=== PATIENT | female | born 1940 | race African-American/Black ===

== ENCOUNTER 2016-11-22 05:22 | Inpatient (IN) | payer OTHER ==
[2016-11-22 07:03] LABS: MANUAL DIFF NEEDED? NO
--- NOTE | 2016-11-22 07:07 | PROVIDER DOCUMENTATION ---
HPI-Abdominal Pain/GI Problem - General Chief Complaint: Rectal Bleeding Stated Complaint: RECTUM BLEEDING Time Seen by Provider: 11/22/16 06:30 Source: patient, family Unable to obtain history due to:: urgency Allergies/Adverse Reactions: Patient Allergies Allergy/AdvReac Type Severity Reaction Status Date / Time meloxicam [From Mobic] AdvReac MAKES ME Verified 11/22/16 05:54 VIOLENT Home Medications: Home Medication List Medication Instructions Recorded Confirmed Last Taken Type Ascorbate Calcium [Vitamin C] 500 mg PO DAILY 07/09/16 11/22/16 11/21/16 History Cetirizine HCl [Zyrtec] 10 mg PO DAILY 07/09/16 11/22/16 11/21/16 History Cyanocobalamin (Vitamin B-12) 1 tab PO DAILY 07/09/16 11/22/16 11/21/16 History [Vitamin B12] Esomeprazole Magnesium [Nexium] 20 mg PO DAILY 07/09/16 11/22/16 11/21/16 History Glyburide/Metformin HCl 1.5 tab PO QHS 07/09/16 11/22/16 11/21/16 History [Glyburide-Metformin 2.5-500 mg] Glyburide/Metformin HCl 2 tab PO QAM 07/09/16 11/22/16 11/21/16 History [Glyburide-Metformin 2.5-500 mg] Hydrochlorothiazide 1 tab PO DAILY 07/09/16 11/22/16 11/21/16 History Losartan [Cozaar] 100 mg PO DAILY 07/09/16 11/22/16 11/21/16 History Metoprolol Succinate E.r. [Toprol 50 mg PO DAILY 07/09/16 11/22/16 11/21/16 History Xl] Multivitamin [Multivitamins] 1 each PO DAILY 07/09/16 11/22/16 11/21/16 History Propafenone HCl 150 mg PO TID 11/22/16 11/22/16 11/21/16 History Rivaroxaban [Xarelto] 20 mg PO DAILY 11/22/16 11/22/16 11/21/16 History - History of Present Illness-ABD Nature of Presenting Problems: 76 Year old AAF with a history of Diverticulosis, presents with c/c o rectal bleeding since last night. She was recently diagnosed with atrial fibrillation and started on Xarelto. She describes the blood as copious, and dark. She denies any tenesmus, or abdominal pain. She is comfortable, and denies any complaints at this time. She has a history of DM,AFIB, HTN, and UTI. Pain Radiation: reports: no radiation Quality of Pain: reports: none Severity in ED: reports: mild Onset/Duration: reports: last night Timing: reports: still present, improving Activities at Onset: reports: light activity Exposure to sick contacts?: No Modifying Factors: improves with: other medication (Patient recently started on xarelto for afib) Associated Symptoms: reports: denies symptoms Last BM: last night Dark Stools Present?: reports: maroon Rectal Bleeding: reports: blood mixed with stool Rectal Pain: reports: none Emesis Description: reports: none Bruising or Bleeding Gums?: No Similar Symptoms Previously?: Yes Recently seen or treated by another doctor?: Yes Review of Systems - Adult - REVIEW OF SYSTEMS - ADULT Constitutional: reports: no symptoms reported Eyes: reports: no symptoms reported Ears, Nose, Mouth & Throat: reports: no symptoms reported Cardiovascular: reports: no symptoms reported Respiratory: reports: no symptoms reported Gastrointestinal: reports: see HPI, rectal bleeding. denies: constipation, nausea, vomiting Genitourinary: reports: no symptoms reported Musculoskeletal: reports: no symptoms reported Integumentary: reports: no symptoms reported Neurological: reports: no symptoms reported Psychiatric: reports: no symptoms reported Endocrine: reports: no symptoms reported Hematologic/Lymphatic: reports: no symptoms reported Allergic/Immunologic: reports: no symptoms reported All Other Systems: Reviewed and Negative Past History - Adult - PAST MEDICAL HISTORY-ADULT Review of Records: reports: Old Records Reviewed, Nursing Assessment Review, Medications Reviewed Major Childhood Illnesses: reports: denies history Cardiovascular: reports: HTN, hyperlipidemia Respiratory: reports: denies history Gastrointestinal: reports: diverticulosis, GERD, GI bleed, hemorrhoids Obstetrical/Gynecological: reports: denies history Genitourinary: reports: denies history Musculoskeletal: reports: denies history Neurological: reports: denies history Endocrine/Immune: reports: Diabetes Other Conditions: reports: denies history - PRIOR SURGERIES/PROCEDURES Surgical/Procedure History: reports: EGD, colonoscopy, bowel surgery - IMMUNIZATION STATUS Childhood Immunizations: See Nurse Assessment Flu Vaccine: See Nurse Assessment - FAMILY HISTORY Family History: reviewed, not pertinent Physical Exam-General - CONSTITUTIONAL General Appearance: appears well, alert, no apparent distress - EYES Eyes: PERRL/EOMI, pink conjunctivae, fundi clear, no AV nicking Departure - Departure Time of Disposition Order: 08:28 DIAGNOSIS: Bleeding diverticulosis, GI (gastrointestinal bleed) Disposition: ADMITTED INPATIENT 09 Certified Medical Emergency: Emergent Condition: Stable Referrals: Abel Elmore MD [Primary Care Provider] -
[2016-11-22 07:13] LABS: BASO% 0.6 % (0.0-0.8); EOS% 1.8 % (0.0-10.0); HEMATOCRIT 31.7 % (37.0-47.0); HEMOGLOBIN 10.4 g/dL (12.0-16.0); LYMPH% 14.7 % (20.5-51.1); MCH 30.6 PG (27-31); MCHC 32.8 g/dL (33-37); MCV 93.2 FL (81-99); MONO# 0.33 X1000 (0.11-0.59); MONO% 6.1 % (1.7-9.3); MPV 12.8 FL (7.4-10.4); NEUT% 76.8 % (42.2-75.2); PLT 143 X1000 (130-400)
[2016-11-22 07:17] LABS: INR 0.95; PROTIME 10.1 Seconds (9.2-11.7); PTT 20.9 Seconds (22.0-36.0)
[2016-11-22 07:31] LABS: ALBUMIN 3.9 g/dL (3.5-5.0); CALCIUM 10.4 mg/dL (8.8-10.2); POTASSIUM 4.2 mmol/L (3.5-5.1); TOTAL BILIRUBIN 0.23 mg/dL (0.20-1.00); TOTAL PROTEIN 6.3 g/dL (6.3-8.3)
[2016-11-22] MEDS ORDERED: SODIUM CHLORIDE 0.9% INJ ONE (08:27)
[2016-11-22] MEDS ORDERED: PROTONIX IV ONE (08:27)
[2016-11-22] MEDS ORDERED: ZOFRAN IV PRN (08:53)
[2016-11-22] MEDS ORDERED: PROTONIX 80 MG in NS 80 ML IV ONE (08:59)
[2016-11-22] MEDS ORDERED: PROTONIX 80 MG in NS 80 ML IV SCH ×2 (09:00→18:30)
[2016-11-22] MEDS: NS 1,000 ML IV SCH ×2 (10:00→20:33)
[2016-11-22 10:03] LABS: HEMATOCRIT 29.7 % (37.0-47.0); HEMOGLOBIN 9.7 g/dL (12.0-16.0)
--- NOTE | 2016-11-22 10:16 | ED EKG INTERP ---
EKG Interpretation - EKG Time of EKG reading by physician:: 09:38 EKG Read and Signed by:: Omid Urbano EKG Interpretation (*Must complete 3 of following elements*): Abnormal Rate: 67 (T wave abnormality, consider lateral ischemia) Rhythm: NSR with sinus arrhythmia Attestation - Scribe Verification/Attestation Scribe:: Ilda Morrow Acting as Scribe for:: Omid Urbano Scribe documention review:: This chart was documented by a scribe and accurately reflects the service the provider performed and the decisions made by the provider.
[2016-11-22 14:14] LABS: ALLEN TEST YES; BLOOD TYPE ARTERIAL; DRAW SITE R RADIAL; METHB 2.1 % (0.0-1.5); O2(CT) 13.1 mL/dL (15.0-23.0); PCO2(98.6) 44 mmHg (35-45); PO2(98.6) 115 mmHg (60-100); SAMPLE BLOOD; SAO2 98.3 % (95.0-100.0); THB 9.6 g/dL (11.5-17.4); pH(98.6) 7.37 (7.35-7.45)
[2016-11-22 14:16] LABS: MODALITY CANNULA
[2016-11-22 14:34] LABS: HEMATOCRIT 28.4 % (37.0-47.0); HEMOGLOBIN 9.3 g/dL (12.0-16.0)
[2016-11-22] MEDS: DUONEB (A & A) INH SCH ×3 (14:35→23:27)
--- NOTE | 2016-11-22 14:57 | HISTORY AND PHYSICAL ---
PRIMARY CARE PHYSICIAN: Abel Elmore MD GARAGE HAND: Yogesh Ernst MD CONSULTING PHYSICIAN: Esperanza Zhao MD CHIEF COMPLAINT: Black stools. HISTORY OF PRESENT ILLNESS: This is a morbidly obese 76-year-old female with a prior history of diverticulosis with prior diverticular bleed, hypertension, gastroesophageal reflux disease, diabetes type 2, and atrial fibrillation. She presented to the emergency room after having a dark black stool this morning about 4:30. Shortly after arriving at the emergency room she states she had a maroon-colored stool. She denies any pain, any symptoms of diverticulitis. She states that she has had diverticular bleeds in the past, although she it was in the setting of acute diverticulitis. Her first episode of atrial fibrillation in the 28 of October and at that time she was seen and hospitalized at [facility]. She spontaneously converted to sinus rhythm. She was placed on Xarelto. She has been on it approximately 2-1/2 weeks. She denies any bruising, any hematuria, or gums bleeding. She was noted to have a hemoglobin and hematocrit of 10.4 and 31.7. In review of her past records, she had a hemoglobin and hematocrit on 11/11/2011 12.3 and 38.1, with platelets 276, today they are 143. She does have an INR 0.95. She is being admitted for further evaluation and treatment. PAST MEDICAL HISTORY: Diverticulosis, diverticulitis, prior diverticular bleed in the setting of acute diverticulitis, hypertension, allergic rhinitis, gastroesophageal reflux disease, diabetes type 2, and atrial fibrillation. PAST SURGICAL HISTORY: Tubal ligation, bowel surgery, sclerotherapy, and back surgery. SOCIAL HISTORY: She denies tobacco use or illicit drug use. She does have occasional recreational alcohol. ALLERGIES: Meloxicam which makes her violent. HOME MEDICATIONS: Xarelto 20 mg daily, Toprol-XL 50 daily, Cozaar 100 daily, hydrochlorothiazide 1 tablet daily, glyburide/metformin 2.5/500, two tabs every morning, 1-1/2 tablets at night, Nexium 20 mg daily, vitamin B12 1 tab daily, Zyrtec 10 mg daily, vitamin C 500 mg daily. REVIEW OF SYSTEMS: A 14 point review of systems is discussed with patient with pertinent positives being bloody stools and black stools. She denied abdominal pain, any diarrhea, constipation, nausea, vomiting, any chest pain, palpitations, syncope, dizziness , shortness of breath, paroxysmal nocturnal dyspnea, orthopnea, cough, fever, chills, recent weight loss or weight gain, hematuria, dysuria, frequency, or urgency. PHYSICAL EXAMINATION: GENERAL: This is a morbidly obese, 76-year-old female who is lying in the bed in no distress. VITAL SIGNS: Blood pressure is 163/47, heart rate of 77, respirations are 18, temperature is 97.4 degrees oral, with room air saturation 100%. HEENT: Head is normocephalic, atraumatic. Pupils equal, round, react to light. EOMs are intact. Sclerae anicteric. Mucous membranes are moist. NECK: Supple. Trachea midline. CARDIOVASCULAR: Regular rate and rhythm S1, S2 appreciated. No rubs, murmurs, or gallops appreciated. LUNGS: Breath sounds are clear bilaterally. Chest rises and falls symmetrically with respiration. No increased work of breathing noted. GASTROINTESTINAL: Abdomen is soft, nontender, nondistended with bowel sounds in all 4 quadrants. BACK: No costovertebral angle tenderness. No spine tenderness. MUSCULOSKELETAL: Good range of motion of joints. NEUROLOGIC: She is alert and oriented x3. EXTREMITIES: No clubbing, cyanosis, or edema. Calves are nontender. Pulses are palpable x4. LABS: WBC is 5.43, with hemoglobin 10.4, hematocrit 31.7, and platelets of 143, 000. Sodium is 143, potassium 4.2, BUN 31, creatinine 1.2, with a glucose of 90. INR 0.95. Her EKG reveals sinus rhythm. ASSESSMENT: 1. Gastrointestinal bleed. The patient did have black stool this morning, followed by a maroon stool in the emergency room. She has had no further stools. Hemoglobin and hematocrit are 10 and 31, with platelets of 143,000, today. On the they were 12.3, 38.1, with platelets of 276,000. She has been typed and screened. We will get every 4 hour hemoglobin and hematocrit. Will consult GI and start the patient on a protonix drip. 2. Acute kidney injury. Creatinine today is 1.2. It was 0.9 on the . We will hold any renal toxic medications. Gently hydrate and trend labs. 3. Diverticulosis. Aware. 4. History of diverticular bleed in the setting of acute diverticulitis. 5. Atrial fibrillation. Will discontinue the xarelto. Will need to confer with cardiology about anticoagulation in this patient once the GI bleed has resolved. 6. Hypertension. At present we will hold all of her antihypertensives and we will monitor. 7. Gastroesophageal reflux disease. As stated above she will be on a Protonix drip. 8. Diabetes type 2. We will hold any antidiabetic medication. She will be placed on pattern blood glucose with sliding scale insulin. 9. Deep venous thrombosis prophylaxis will use SCDs. Of note, the patient does see Dr. Gandara in Cardiology. She underwent an echocardiogram in June of 2016 which revealed an ejection fraction of 60%. She has had a myocardial perfusion study looks like about 2013. At that time, she had a normal perfusion with a nondiagnostic stress. She states she did have some chest pain during that time. She has not had any since 2014 episode. Further treatments pending hospital course. Dictated by MINISTERIO Garzon for Esperanza Zhao MD The patient was seen and examined by me. I agree with the assessment and plan as dictated. MARCO
--- NOTE | 2016-11-22 15:12 | Diag Imaging Result Document ---
PROCEDURE NAME: CHEST-PORTABLE - 11/22/2016 AP PORTABLE CHEST AT 1430 HOURS: FINDINGS: There is cardiomegaly. There is no evidence of focal pulmonary opacity. The lower lung hernandez are somewhat attenuated by the overlying soft tissues. IMPRESSION: Cardiomegaly.
[2016-11-22] MEDS: HUMALOG SUBQ SCH ×3 (17:40→20:38)
[2016-11-22 18:24] LABS: HEMATOCRIT 28.4 % (37.0-47.0); HEMOGLOBIN 9.3 g/dL (12.0-16.0)
[2016-11-22 21:53] LABS: MANUAL DIFF NEEDED? NO
[2016-11-22 21:58] LABS: BASO% 0.4 % (0.0-0.8); EOS# 0.08 X1000 (0.0-0.7); EOS% 1.7 % (0.0-10.0); HEMATOCRIT 28.1 % (37.0-47.0); HEMOGLOBIN 9.2 g/dL (12.0-16.0); LYMPH# 1.11 X1000 (1.2-3.4); LYMPH% 23.6 % (20.5-51.1); MCH 30.8 PG (27-31); MCHC 32.7 g/dL (33-37); MONO# 0.38 X1000 (0.11-0.59); MONO% 8.1 % (1.7-9.3); MPV 11.2 FL (7.4-10.4); NEUT% 66.2 % (42.2-75.2); PLT 163 X1000 (130-400); RBC 2.99 XMIL (4.2-5.4)
--- NOTE | 2016-11-22 23:04 | CONSULTATION ---
DATE OF CONSULTATION: 11/22/2016 REQUESTING PHYSICIANS: Esperanza Zhao MD PRIMARY LOCKSTITCH HEMMER: Yogesh Ernst MD PRIMARY CARE PHYSICIAN: Abel Elmore MD REASON FOR CONSULTATION: Rectal bleeding. HISTORY OF PRESENT ILLNESS: Ms. Faulkner is a 76-year-old female, who was admitted on 11/22/2016 with a new onset of rectal bleeding. According to the patient, when she woke up this morning she went to use the restroom, she noted some dark stool mixed with fresh blood. She has a previous history of diverticulitis, diverticulosis and had last colonoscopy done July [address] Ernst. She was recently diagnosed with atrial fibrillation and was started on Xarelto in early October 2016. Her hemoglobin and hematocrit were noted to be 10.4 and 31.7, which had dropped in comparison to her last hemoglobin and hematocrit of 12.3, 38.1 on 11/11/2016. Since being in the hospital, she denies any vomiting blood or passing blood in the stools. Her Xarelto has been held. The patient has a remote history of peptic ulcer disease many years ago. She denies using any NSAIDs. PAST MEDICAL HISTORY: 1. Diverticulosis. 2. Diverticulitis. 3. History of prior diverticular bleeding. 4. Hypertension. 5. Allergic rhinitis. 6. Gastroesophageal reflux disease. 7. Diabetes type 2. 8. Atrial fibrillation on Xarelto, started on 11/16/2016 which has been held on admission. Last Xarelto was 11/21/2016. PAST SURGICAL HISTORY: Tubal ligation. Bowel surgery. Sclerotherapy. Back surgery. SOCIAL HISTORY: Denies any tobacco, alcohol, illicit drugs. She does drink occasionally. ALLERGIES: Meloxicam. MEDICATIONS AT HOME: Xarelto. Toprol. Cozaar. Hydrochlorothiazide. Glimepiride/metformin. Nexium 20 mg once daily. Vitamin B12. Zyrtec. Vitamin C. REVIEW OF SYSTEMS: Denies any fevers, rigors, or chills, chest pain, shortness of breath, dyspnea, denies any genitourinary complaints. Denies any history of vomiting blood or abdominal pain. She does have history of occasional constipation. MEDICATIONS IN THE HOSPITAL: Zofran, Humalog, Protonix drip, normal saline 100 mL/hour, DuoNeb. She is on a clear liquid diet. PHYSICAL EXAMINATION: Vital signs: Temperature 98.5 degrees, pulse of 85, respiratory rate 20, blood pressure 130/91, saturating 93% on room air. Weight: Body weight of 241 pounds. BMI of 37.7 kg. General: Mildly obese, lying in bed, in no acute distress. HEENT: Pale conjunctivae, no icterus, pupils equal, react to light. Neck: Supple. Chest: Decreased. Cardiac: Regular rate and rhythm. No murmur. Abdomen: Soft, nontender, nondistended. Bowel sounds heard. No rebound. No guarding. Mild obesity noted. Extremities: No clubbing, cyanosis or edema. Neurologic: Alert, awake, oriented. LABORATORY: Hemoglobin and hematocrit is 9.3, 28.4, which has dropped from 10.4 and 31.7 on admission. White count of 5.4, platelet count of 143,000, MCV of 93.2. Sodium of 142, potassium 4.2, chloride 107, bicarb 23, anion gap 13, BUN of 31, creatinine 1.2, glucose of 90, calcium is 10.4, AST 26, ALT 11, alkaline phosphatase 66, total protein 6.2, albumin of 3.9. INR 0.95. Hemoglobin and hematocrit on 11/11 was 38.1. The last colonoscopy was done 01/04/[address] Ernst. At that time, there was evidence of active diverticular bleeding in the splenic flexure area and this was treated with epinephrine and hemoclip. IMPRESSION AND PLAN: 1. Diverticular bleeding. 2. History of previous diverticulitis. 3. History of peptic ulcer disease. 4. Reflux disease. 5. Atrial fibrillation on Xarelto. 6. Anemia. RECOMMENDATIONS: We will give the patient a clear liquid diet. We will type and cross, transfuse to keep her hematocrit more than 25%. We will keep her on Protonix drip for now. We will watch her hematocrit and if she continues to drop, then she may need a colonoscopy. Since she had a recent colonoscopy less than a year ago, we will wait for Dr. Ernst to come tomorrow to decide if she needs another colonoscopy, but in the interim, if she shows signs of ongoing continuous gastrointestinal bleeding, then we may have to pursue endoscopic intervention. The patient is also a little hesitant in preceding colonoscopy and drinking a large 1 gallon of bowel prep. So we will let Dr. Ernst decide when he comes back tomorrow. The above plan of care was discussed with the patient and the nurse and all questions answered.
[2016-11-23] MEDS: DUONEB (A & A) INH SCH ×6 (03:16→22:58)
[2016-11-23] MEDS: NS 1,000 ML IV SCH ×3 (05:40→15:22)
[2016-11-23] MEDS: PROTONIX 80 MG in NS 80 ML IV SCH ×2 (05:41→16:57)
[2016-11-23] MEDS ORDERED: PROTONIX 80 MG in NS 80 ML IV SCH (06:00)
[2016-11-23] MEDS: HUMALOG SUBQ SCH ×5 (06:32→20:12)
[2016-11-23 06:39] LABS: MANUAL DIFF NEEDED? NO
[2016-11-23 06:42] LABS: BASO% 0.4 % (0.0-0.8); EOS# 0.04 X1000 (0.0-0.7); EOS% 0.8 % (0.0-10.0); HEMATOCRIT 28.9 % (37.0-47.0); HEMOGLOBIN 9.3 g/dL (12.0-16.0); LYMPH# 0.91 X1000 (1.2-3.4); LYMPH% 18.9 % (20.5-51.1); MCH 30.7 PG (27-31); MCHC 32.2 g/dL (33-37); MCV 95.4 FL (81-99); MONO# 0.35 X1000 (0.11-0.59); MONO% 7.3 % (1.7-9.3); MPV 12.3 FL (7.4-10.4); NEUT% 72.6 % (42.2-75.2); PLT 154 X1000 (130-400); RBC 3.03 XMIL (4.2-5.4)
[2016-11-23 07:15] LABS: AGAP 10; ALBUMIN 3.4 g/dL (3.5-5.0); BUN 15 mg/dL (8-22); CALCIUM 9.9 mg/dL (8.8-10.2); CHLORIDE 112 mmol/L (98-107); COSMO 295; POTASSIUM 4.2 mmol/L (3.5-5.1); SODIUM 147 mmol/L (136-145); TCO2 25 mmol/L (25-35)
--- NOTE | 2016-11-23 07:35 | EKG Report ---
Test Performed on : 11/22/2016 09:38:43 AM Test Reason : AFib Blood Pressure : / mmHG Vent. Rate : 067 BPM Atrial Rate : 067 BPM P-R Int : 156 ms QRS Dur : 092 ms QT Int : 410 ms P-R-T Axes : 057 029 -03 degrees QTc Int : 433 ms Normal sinus rhythm. with sinus arrhythmia. T wave abnormality, consider lateral ischemia Abnormal ECG When compared with ECG of 20-FEB-2012 19:01, No significant change was found Unconfirmed Result
[2016-11-23 10:56] LABS: MANUAL DIFF NEEDED? NO
[2016-11-23 11:01] LABS: BASO% 0.4 % (0.0-0.8); EOS# 0.05 X1000 (0.0-0.7); HEMATOCRIT 27.5 % (37.0-47.0); HEMOGLOBIN 8.6 g/dL (12.0-16.0); LYMPH# 1.11 X1000 (1.2-3.4); LYMPH% 21.6 % (20.5-51.1); MCH 30.2 PG (27-31); MCHC 31.3 g/dL (33-37); MCV 96.5 FL (81-99); MONO# 0.38 X1000 (0.11-0.59); MONO% 7.4 % (1.7-9.3); MPV 12.1 FL (7.4-10.4); NEUT% 69.6 % (42.2-75.2); PLT 153 X1000 (130-400); RBC 2.85 XMIL (4.2-5.4)
--- NOTE | 2016-11-23 12:11 | PROGRESS NOTE ---
DATE: 11/23/2016 SUBJECTIVE: Patient has no focal complaints. OBJECTIVE: Vital signs: Blood pressure 132/59, heart rate is 74, respiratory rate 28, temperature 98 to 100% on 3 L. Cardiovascular: Regular rate and rhythm. Pulmonary: Bilateral breath sounds. Clear to auscultation. GI: Soft, nontender, nondistended. Bowel sounds are positive. LABORATORY DATA: Hemoglobin and hematocrit are 9 and 28 and has basically been stable since yesterday morning. Chemistries: Sodium is at 147 but otherwise really unremarkable. PROBLEM LIST: 1. Gastrointestinal bleed, possibly lower, associated with direct thrombin inhibitor, Xarelto. Xarelto has been held. Plan for colonoscopy likely tomorrow after prep. She is on a PPI infusion. We will continue to follow closely. Continue hydration. At this point she has not required transfusion and her hemoglobin and hematocrit are stable so we will continue to monitor very closely. 2. Atrial fibrillation. Appears to be controlled. I am going to resume her Toprol and propafenone because she needs her medications to hopefully keep her heart rate under control. 3. Diabetes. Appears to be controlled. Holding her metformin just because her p.o. status is poor and we will continue sliding scale and follow. I will check an A1c too because that has not been done. 4. Disposition. I think she is stable for step down, maybe even med tele. The rest of the course is pending her GI workup.
--- NOTE | 2016-11-23 13:10 | PROGRESS NOTE ---
DATE: 11/23/2016 SUBJECTIVE: The patient denies any rectal bleeding since yesterday. She has had episodes of abdominal pain and cramping. No reported shortness of breath or chest pain. No reported dizziness. She does report a headache. OBJECTIVE: Vital Signs: Temperature 98.2 degrees, pulse 74, respirations 28, blood pressure 132/59. General: Patient is awake and alert. No acute distress. Respiratory: Lung sounds clear bilaterally. Abdomen: Soft, nontender. Positive bowel sounds. Cardiovascular: Sinus rhythm. She has a history of atrial fibrillation and was placed on Xarelto by Dr. Gandara in early October. She noted onset of rectal bleeding early yesterday morning associated with some abdominal cramping. LABORATORY: Hematology count 5.15, hemoglobin 8.6, hematocrit 27.5, MCV 96.5. Chemistry: Sodium 147, potassium 4.2, chloride 112, CO2 25, BUN 15, creatinine 0.8, glucose 137. ASSESSMENT: 1. Rectal bleeding with history of diverticular bleed in the past. 2. Anticoagulation therapy. Recently started on Xarelto in early October for atrial fibrillation. 3. Atrial fibrillation. 4. Anemia secondary to rectal bleeding. PLAN: Continue supportive care. Continue IV fluids. Monitor hemoglobin and hematocrit. Transfuse packed red blood cells if needed. Monitor for active bleeding. We will plan to proceed with a colonoscopy on Wednesday, once she has been off of Xarelto for at least 3 days, unless needed urgently. I have discussed the plan with the patient. We will give her a low volume prep, Prepopik since she is afraid she will have trouble drinking the gallon prep. Will plan further colonoscopy Wednesday unless needed urgently. I have discussed the procedure along with benefits and risk of the colonoscopy procedure. The patient wishes to proceed. I have discussed this case with Dr. Ernst. Dictated by MINISTERIO Pascual for Yogesh Ernst MD
[2016-11-23] MEDS: RYTHMOL PO SCH ×2 (13:32→16:58)
[2016-11-23] MEDS: TYLENOL PO PRN ×2 (15:22→23:12)
[2016-11-23 18:10] LABS: HEMATOCRIT 26.7 % (37.0-47.0); HEMOGLOBIN 8.3 g/dL (12.0-16.0)
[2016-11-24] MEDS: DUONEB (A & A) INH SCH ×6 (03:31→23:33)
[2016-11-24] MEDS: PROTONIX 80 MG in NS 80 ML IV SCH ×2 (05:07→13:13)
[2016-11-24] MEDS: NS 1,000 ML IV SCH ×3 (05:07→22:20)
[2016-11-24 07:46] LABS: AGAP 8; ALBUMIN 3.3 g/dL (3.5-5.0); BUN 10 mg/dL (8-22); CHLORIDE 110 mmol/L (98-107); COSMO 287; POTASSIUM 4.3 mmol/L (3.5-5.1); SODIUM 144 mmol/L (136-145); TCO2 26 mmol/L (25-35)
[2016-11-24 07:59] LABS: HEMATOCRIT 27.9 % (37.0-47.0); HEMOGLOBIN 8.7 g/dL (12.0-16.0); MCH 30.3 PG (27-31); MCHC 31.2 g/dL (33-37); MCV 97.2 FL (81-99); MPV 12.5 FL (7.4-10.4); RBC 2.87 XMIL (4.2-5.4)
[2016-11-24] MEDS: ZYRTEC PO SCH (08:48)
[2016-11-24] MEDS: TOPROL XL PO SCH (08:48)
[2016-11-24] MEDS: COZAAR PO SCH (08:48)
[2016-11-24] MEDS: VITAMIN B-12 PO SCH (08:48)
[2016-11-24] MEDS: RYTHMOL PO SCH ×3 (08:49→17:46)
[2016-11-24 09:34] LABS: HEMOGLOBIN A1C 5.2 % (4.8-6.0)
--- NOTE | 2016-11-24 11:27 | PROGRESS NOTE ---
DATE: 11/24/2016 SUBJECTIVE: The patient denies any active bleeding. She has not had a bowel movement today. She does report some mild abdominal cramping. OBJECTIVE: Vital Signs: Temperature 97.8 degrees, pulse 75, respirations 16, blood pressure 143/54. General: Generally, patient is awake and alert, in no acute distress. HEENT: Normocephalic, atraumatic. Pupils equal, round, reactive to light. Sclerae nonicteric. Respiratory: Lung sounds clear bilaterally. Abdomen: Soft. Positive bowel sounds. Some mild tenderness with palpation. LABORATORY RESULTS: Hematology: White count 4.16, hemoglobin 8.7, hematocrit 27.9, MCV 97.2, platelet 144. Chemistry: Sodium 144, potassium 4.3, chloride 110, CO2 26, BUN 10, creatinine 0.8, glucose 119. ASSESSMENT: 1. Rectal bleeding. 2. History of diverticular bleed in the past. 3. Anticoagulation therapy. She was recently started on Xarelto in October for atrial fibrillation. Her Xarelto is currently on hold. 4. Atrial fibrillation. 5. Anemia secondary to gastrointestinal bleed. PLAN: Continue supportive care. Continue IV fluids. Monitor hemoglobin and hematocrit and transfuse packed red blood cells if needed. We will plan to proceed with a colonoscopy on Wednesday once she has been off of Xarelto for at least 3 days unless needed urgently. I have discussed the plan with the patient along with benefits and risk of the procedure, and she wishes to proceed. Further plans will be made according to findings. I have discussed this case with Dr. Ernst. Dictated by MINISTERIO Pascual for Yogesh Ernst MD
[2016-11-24] MEDS: HUMALOG SUBQ SCH ×3 (11:42→22:25)
[2016-11-24] MEDS ORDERED: MISC. PHARMACY COMMUNICATION SCH (16:00)
[2016-11-24] MEDS ORDERED: NON-FORMULARY BULK MED PO SCH (16:00)
--- NOTE | 2016-11-24 16:35 | PROGRESS NOTE ---
DATE: 11/24/2016 SUBJECTIVE: The patient denies having any bleeding. Has not had a bowel movement for the past 24 hours. She denies having any abdominal discomfort. No fever. No chills. Following the patient with lower GI bleed. OBJECTIVE: Vital Signs: Blood pressure 135/56, pulse of 58, respirations 25, temperature 98.0 degrees, saturation 100% on room air. General Appearance: Morbidly obese, black female in no acute distress. HEENT: Anicteric. Clear conjunctivae. Neck: Supple. No JVD. No bruits. Cardiovascular: S1, S2. Normal rate and rhythm. No murmur, rubs, or gallops. Pulmonary: Clear to auscultation bilaterally. GI: Soft, nontender, nondistended. Normoactive bowel sounds. Musculoskeletal: No clubbing, cyanosis, or edema. LABORATORY: White count 4.16, hemoglobin 8.7, hematocrit of 27.9, platelets 144,000. Chemistry: Sodium 144, potassium 4.3, chloride 110, bicarb 26, BUN 10, creatinine 0.8, glucose of 119. ASSESSMENT AND PLAN: This is a 76-year-old with a history of atrial fibrillation, on Xarelto, presented to the emergency room for recurrent lower gastrointestinal bleed. 1. Lower gastrointestinal bleed. GI was consulted. They are planning to do the colonoscopy on Wednesday, pending her Xarelto to clear out of her system. The patient has not required any transfusion at this point. Her hemoglobin and hematocrit have remained stable. 2. Atrial fibrillation. Under control with Toprol and on propafenone. Will continue her Xarelto. 3. Diabetes. Will hold her metformin. Start the patient on sliding scale insulin. 4. Seasonal allergic rhinitis. We will continue Zyrtec. 5. Hypertension. Continue Cozaar. 6. Code status. The patient is a full code.
[2016-11-25] MEDS: PROTONIX 80 MG in NS 80 ML IV SCH ×3 (01:26→09:56)
[2016-11-25] MEDS: NS 1,000 ML IV SCH ×2 (05:19→12:07)
[2016-11-25] MEDS: DUONEB (A & A) INH SCH ×6 (05:39→23:20)
[2016-11-25] MEDS: HUMALOG SUBQ SCH ×4 (06:29→21:28)
[2016-11-25 07:32] LABS: MANUAL DIFF NEEDED? NO
[2016-11-25 07:33] LABS: BASO% 0.4 % (0.0-0.8); EOS# 0.09 X1000 (0.0-0.7); EOS% 1.9 % (0.0-10.0); HEMATOCRIT 28.6 % (37.0-47.0); HEMOGLOBIN 9.1 g/dL (12.0-16.0); LYMPH% 16.5 % (20.5-51.1); MCH 30.3 PG (27-31); MCHC 31.8 g/dL (33-37); MCV 95.3 FL (81-99); MONO# 0.52 X1000 (0.11-0.59); MONO% 10.7 % (1.7-9.3); MPV 12.2 FL (7.4-10.4); NEUT% 70.5 % (42.2-75.2); PLT 167 X1000 (130-400)
[2016-11-25 07:47] LABS: AGAP 9; BUN 8 mg/dL (8-22); CALCIUM 9.6 mg/dL (8.8-10.2); CHLORIDE 107 mmol/L (98-107); COSMO 280; POTASSIUM 4.1 mmol/L (3.5-5.1); SODIUM 141 mmol/L (136-145); TCO2 25 mmol/L (25-35)
[2016-11-25] MEDS ORDERED: SODIUM CHLORIDE 0.9% 10 ML ONE (07:57)
[2016-11-25] MEDS ORDERED: PROTONIX IV SCH ×2 (08:59→09:00)
[2016-11-25] MEDS: RYTHMOL PO SCH ×3 (09:41→16:35)
--- NOTE | 2016-11-25 12:11 | PROGRESS NOTE ---
DATE: 11/25/2016 SUBJECTIVE: The patient is feeling well today. She had her bowel prep yesterday and is scheduled for a colonoscopy at 2 o'clock today. OBJECTIVE: Vital Signs: Blood pressure 139/52, pulse of 68, respirations 14, temperature 98.1 degrees, satting 99%. General Appearance: Morbidly obese, black female, in no acute distress. HEENT: Anicteric sclerae. Clear conjunctivae. Neck: Supple. No JVD. No bruits. Cardiovascular: S1 and S2. Normal rate and rhythm. No murmur, rubs, or gallops. Pulmonary: Clear to auscultation bilaterally. GI: Soft, nontender, nondistended. Normoactive bowel sounds. Musculoskeletal: No clubbing, cyanosis or edema. LABORATORY: Her white count is 4.84, hemoglobin 9.1, hematocrit of 28.6, platelets of 167. Chemistry: Sodium 141, potassium 4.1, chloride 107, bicarbonate 25, BUN 8, creatinine 0.8, glucose 113. ASSESSMENT AND PLAN: This is a 76-year-old, black female admitted to the hospital for rectal bleed. 1. Rectal bleed. The patient is going for a colonoscopy today. We will continue to hold her Xarelto. We will resume her Xarelto once cleared by gastroenterology. 2. Atrial fibrillation. Continue rate control with metoprolol and will put her on propafenone for rate control. 3. Diabetes. Will continue sliding scale insulin. 4. Seasonal allergic rhinitis. Continue Zyrtec. 5. Hypertension. Continue Cozaar 6. Code status: The patient is a full code.
[2016-11-25] MEDS ORDERED: MYLICON DROPS (DOSE) MISC ONE (15:49)
[2016-11-25] MEDS ORDERED: DIPRIVAN 1% ONE (16:27)
[2016-11-25] MEDS ORDERED: FENTANYL ONE (16:27)
[2016-11-25] MEDS: TYLENOL PO PRN (16:31)
[2016-11-25] MEDS: ZYRTEC PO SCH (16:32)
[2016-11-25] MEDS: TOPROL XL PO SCH (16:32)
[2016-11-25] MEDS: COZAAR PO SCH (16:32)
[2016-11-25] MEDS: VITAMIN B-12 PO SCH (16:34)
[2016-11-25] MEDS ORDERED: XYLOCAINE-MPF 2% ONE (17:31)
--- NOTE | 2016-11-25 21:56 | OPERATIVE NOTE ---
PROCEDURE DATE: 11/25/2016 PROCEDURE: Colonoscopy. PREOPERATIVE DIAGNOSES: 1. Gastrointestinal bleed. 2. Anemia secondary to gastrointestinal bleed. POSTOPERATIVE DIAGNOSIS: 1. Diverticular bleeding. 2. Diverticulosis. Otherwise normal colon. HISTORY: This is a 76-year-old female who has history of recurrent diverticular bleeding admitted to hospital with acute lower GI bleed after she was started on Xarelto for atrial fibrillation. Her hemoglobin and hematocrit had dropped, But not significant requiring transfusion. Endoscopy was done for diagnostic as well as therapeutic purposes. DESCRIPTION OF PROCEDURE: Informed consent obtained from the patient. The procedure, risks, benefits, alternatives were explained in layman's terms. She understood. All the pertinent questions were answered. Patient was brought to the endoscopy unit and was premedicated as per Anesthesia. After adequate sedation, while she was lying in left lateral position, digital rectal exam was performed, which was normal. Scope was then gently introduced into the rectum and advanced under direct vision. Immediately, I saw some dark stool, but did not notice any bright red blood. Vigorous irrigation and suctioning was employed to cleanse the area as far as I could, and I was able to advance the scope all the way up to the cecum. The cecum was identified by ileocecal valve and appendiceal orifice. As we advanced the scope through the rectum all the way to the cecum, I saw the change in the stool where the stool became more of brown color. The right side of the colon did not have much of dark altered blood or the appearance was more brownish. Again I did not see any evidence of active bleeding. The scope was withdrawn, paying careful attention to details. Preparation was fair. There was a good bit of stool present throughout the colon, although vigorous irrigation and suctioning was employed, but I was only able to cleanse partially. The visualized portion of the colon revealed extensive diverticulosis involving majority of the left colon and some were also seen in the right colon. No evidence of diverticulitis or diverticular bleeding was seen. Rectum was examined both in straight and retroflexed view, which revealed no pathology. Scope was then removed. Patient tolerated the procedure well. No complications noted. Patient was then transferred to the recovery area in a stable condition. IMPRESSION: Diverticular bleeding, diverticulosis. I did not see any evidence of active bleeding that I could render any treatment to. RECOMMENDATION: I would start her on all her medications, stool softener, she is on MiraLAX and I was asked to discuss her condition with the e learning designer and Dr. Elomre to see if she can be resumed back on anticoagulation to the lowest dose possible so she can avoid recurrent bleeding. I have explained the finding and plan with the patient's daughter. She understood. All her pertinent questions were answered.
[2016-11-26] MEDS: DUONEB (A & A) INH SCH ×3 (03:25→11:03)
[2016-11-26] MEDS: HUMALOG SUBQ SCH ×2 (06:24→11:54)
[2016-11-26 07:00] LABS: MANUAL DIFF NEEDED? NO
[2016-11-26 07:19] LABS: BASO% 0.2 % (0.0-0.8); EOS# 0.05 X1000 (0.0-0.7); EOS% 0.9 % (0.0-10.0); HEMATOCRIT 27.7 % (37.0-47.0); HEMOGLOBIN 8.7 g/dL (12.0-16.0); LYMPH# 0.88 X1000 (1.2-3.4); LYMPH% 15.1 % (20.5-51.1); MCH 30.1 PG (27-31); MCHC 31.4 g/dL (33-37); MCV 95.8 FL (81-99); MONO# 0.66 X1000 (0.11-0.59); MONO% 11.3 % (1.7-9.3); MPV 12.3 FL (7.4-10.4); NEUT% 72.5 % (42.2-75.2); PLT 110 X1000 (130-400); RBC 2.89 XMIL (4.2-5.4)
[2016-11-26 07:23] LABS: AGAP 8; BUN 7 mg/dL (8-22); CHLORIDE 107 mmol/L (98-107); COSMO 280; SODIUM 141 mmol/L (136-145); TCO2 26 mmol/L (25-35)
[2016-11-26] MEDS: NS 1,000 ML IV SCH ×2 (08:04→08:05)
[2016-11-26] MEDS: TOPROL XL PO SCH (08:21)
[2016-11-26] MEDS: ZYRTEC PO SCH (08:21)
[2016-11-26] MEDS: VITAMIN B-12 PO SCH (08:21)
[2016-11-26] MEDS: COZAAR PO SCH (08:21)
[2016-11-26] MEDS: RYTHMOL PO SCH ×2 (08:21→14:07)
[2016-11-26] MEDS ORDERED: PRILOSEC PO SCH (09:00)
[2016-11-26 13:22] VITALS: BP 140/44
--- NOTE | 2016-11-26 16:20 | DISCHARGE SUMMARY ---
ADMISSION DATE: 11/22/2016 DISCHARGE DATE: 11/26/2016 DISCHARGE DIAGNOSES: 1. Diverticular bleed. 2. Atrial fibrillation. 3. Diabetes type 2. 4. Gastroesophageal reflux disease. 5. Hypertension. 6. Morbid obesity. DISCHARGE MEDICATIONS: 1. Propafenone 150 mg t.i.d. 2. Vitamin C 500 100 mg p.o. daily. 3. Zyrtec 10 mg p.o. daily. 4. Cozaar 100 mg p.o. daily. 5. B12 2500 mcg daily. 6. Nexium 20 mg p.o. daily. 7. Glipizide/metformin 2.5/500, 1-1/2 tabs at night and 2 tabs in the morning. 8. Hydrochlorothiazide 12.5, 1 tablet p.o. daily. 9. Multivitamin 1 tablet p.o. daily. 10. Toprol-XL 50 mg p.o. daily. 11. Aspirin 325, 1 tablet p.o. daily. CONSULTATIONS: GI was consulted for lower GI bleed. PROCEDURES: A colonoscopy was done and was found to have diverticular bleeding. Dr. Ernst did the procedure. He did not find any active bleeding, but there was evidence of diverticular bleeding and diverticulosis. SIGNIFICANT LABORATORY AND IMAGING: At discharge hemoglobin and hematocrit is 8.7 and 27.7, platelets of 110,000. Chemistry: Sodium 141, potassium 4.0, chloride 107, bicarbonate 26, BUN 7, creatinine 0.8, glucose 114. HOSPITAL COURSE: The patient is a 76-year-old, black female, morbidly obese, with a history of atrial fibrillation and was put on Xarelto presented to the emergency room with bright red blood per rectum. This is her 2nd episode of bleeding. The patient seen Dr. Ernst in the past and requested Dr. Ernst again. At this time, Dr. Ernst saw the patient. Because she was on Xarelto he had to keep her Xarelto on hold for 3 days before he was able to do the colonoscopy, when he did the colonoscopy, he did not find any active bleeding, but there was evidence of diverticular bleeding. From our standpoint with risks and benefits as this is her 2nd bleed, we will hold her on Xarelto at discharge and we will put her on a full dose of aspirin for anticoagulation for her atrial fibrillation although it is not as adequate as it would be with a new oral anticoagulation. However the risk of bleeding is much less. I encouraged the patient to discuss with her primary care doctor and her bad cloth checker perhaps to stay on a lower dose of Xarelto instead of a full dose of Xarelto. She will follow up with her PCP and her bad cloth checker in 1-2 weeks. PHYSICAL EXAMINATION: Vital Signs: At discharge, her vital signs are blood pressure 140/44, pulse of 71, respirations 20, temperature of 97.6 degrees saturations of 94% on room air. General appearance: Morbidly obese, black female in no acute distress. HEENT: Anicteric. Clear conjunctivae. Neck: Supple. No JVD. No bruit. Cardiovascular: S1, S2. Normal rate and rhythm. No murmur, rubs, or gallops. Pulmonary: Clear to auscultation bilaterally. Gastrointestinal: Soft, nontender, nondistended. Normoactive bowel sounds. Musculoskeletal: No clubbing, cyanosis, or edema. DISPOSITION: We will discharge the patient home. CONDITION: Stable and improving. ACTIVITY: As tolerated. FOLLOWUP: The patient can follow up with her bad cloth checker and her PCP in 1-2 weeks. TIME SPENT AT DISCHARGE: Thirty-five minutes.
== END 2016-11-26 14:55 | disposition home or self-care (01) | DRG 378 ==
LOC: ED 05:22 → EDIPHOLD 09:49 → ICU 16:05 → 3N 11-23 21:41
PROVIDERS: ATTEND Internal Medicine
PROC: 0DJD8ZZ Inspection of Lower Intestinal Tract, Via Natural or Artificial Opening Endoscopic (ICD-10-PCS; principal; 2016-11-25 15:35)
DX: K57.31 Diverticulosis of large intestine without perforation or abscess with bleeding (principal); N17.9 Acute kidney failure, unspecified; I48.91 Unspecified atrial fibrillation; E11.9 Type 2 diabetes mellitus without complications; E66.01 Morbid (severe) obesity due to excess calories; I10 Essential (primary) hypertension; D50.0 Iron deficiency anemia secondary to blood loss (chronic); E78.5 Hyperlipidemia, unspecified; K21.9 Gastro-esophageal reflux disease without esophagitis; Z79.02 Long term (current) use of antithrombotics/antiplatelets; Z79.84 Long term (current) use of oral hypoglycemic drugs; Z79.899 Other long term (current) drug therapy; J30.2 Other seasonal allergic rhinitis; Z87.891 Personal history of nicotine dependence; G47.33 Obstructive sleep apnea (adult) (pediatric); Z87.11 Personal history of peptic ulcer disease; Z86.718 Personal history of other venous thrombosis and embolism; Z86.711 Personal history of pulmonary embolism; Z68.37 Body mass index [BMI] 37.0-37.9, adult
CPT/HCPCS: 71010; 80048; 80053; 80069; 82306; 82805; 82948; 83036; 83880; 85014; 85018; 85025; 85027; 85610; 85730; 86850; 86900; 86901; 93005; 94640; 94761; 96365; 96366; 96375; C9113; J1815; J2405; J3010; J7030; S0164

== ENCOUNTER 2017-04-20 15:33 | Inpatient (IN) ==
[2017-04-20] MEDS ORDERED: NS 2,000 ML IV ONE (16:40)
[2017-04-20 16:46] LABS: URINE MICRO REVIEW NEEDED? NO; URINE SOURCE CLEAN CATCH
[2017-04-20 16:46] LABS: MANUAL DIFF NEEDED? NO
--- NOTE | 2017-04-20 16:52 | PROVIDER DOCUMENTATION ---
This chart was entered by Ilda Morrow Scribe, acting as scribe for Gilbert Henley MD. HPI-General Adult - General Chief Complaint: UTI Symptoms Stated Complaint: CONFUSED,POSS UTI Time Seen by Provider: 04/20/17 16:03 Source: patient Allergies/Adverse Reactions: Patient Allergies Allergy/AdvReac Type Severity Reaction Status Date / Time meloxicam [From Mobic] AdvReac MAKES ME Verified 04/20/17 16:12 VIOLENT Home Medications: Home Medication List Medication Instructions Recorded Confirmed Last Taken Type Cetirizine HCl [Zyrtec] 10 mg PO DAILY 07/09/16 04/20/17 04/14/17 History Losartan [Cozaar] 100 mg PO DAILY 07/09/16 04/20/17 04/14/17 History Propafenone HCl 150 mg PO TID 11/22/16 04/20/17 04/14/17 History Aspirin [Aspir-Low] 81 mg PO DAILY 03/23/17 04/20/17 04/14/17 History Omeprazole 40 mg PO DAILY 03/23/17 04/20/17 04/14/17 History Alprazolam 0.25 mg PO HS 04/20/17 04/20/17 Unknown History Pravastatin Sodium 20 mg PO HS 04/20/17 04/20/17 Unknown History - History of Present Illness -Gen Adult Nature of Presenting Problems: Pt is a 76 year old female who came to the ED with a cc of UTI symptoms and has been recently treated for one. Pt reports she was referred to ED for elevated parathyroid hormone and renal insufficiency. Onset/Duration: reports: unsure Timing: reports: still present Context/Activities at Onset: reports: none Modifying Factors: improves with: nothing Associated Symptoms: reports: denies symptoms Similar Symptoms Previously?: Yes Recently seen or treated by another doctor?: Yes Review of Systems - Adult - REVIEW OF SYSTEMS - ADULT Constitutional: denies: chills, fever Eyes: reports: no symptoms reported Ears, Nose, Mouth & Throat: reports: no symptoms reported Cardiovascular: reports: no symptoms reported Respiratory: denies: cough, shortness of breath Gastrointestinal: reports: no symptoms reported Genitourinary: reports: frequency, frequent UTI's, urinary retention, urgency. denies: flank pain, hematuria, incontinence Musculoskeletal: reports: no symptoms reported Integumentary: reports: no symptoms reported Neurological: reports: no symptoms reported Psychiatric: reports: no symptoms reported Endocrine: reports: no symptoms reported Hematologic/Lymphatic: reports: no symptoms reported Allergic/Immunologic: reports: no symptoms reported All Other Systems: Reviewed and Negative Past History - Adult - PAST MEDICAL HISTORY-ADULT Review of Records: reports: Old Records Reviewed, Nursing Assessment Review Major Childhood Illnesses: reports: denies history Cardiovascular: reports: A-Fib, HTN, hyperlipidemia Respiratory: reports: denies history Gastrointestinal: reports: diverticulosis, GERD, GI bleed, hemorrhoids Obstetrical/Gynecological: reports: denies history Genitourinary: reports: denies history Musculoskeletal: reports: denies history Neurological: reports: denies history Endocrine/Immune: reports: Diabetes Other Conditions: reports: denies history - PRIOR SURGERIES/PROCEDURES Surgical/Procedure History: reports: EGD, colonoscopy, BTL, bowel surgery - IMMUNIZATION STATUS Childhood Immunizations: See Nurse Assessment Flu Vaccine: See Nurse Assessment - FAMILY HISTORY Family History: reviewed, not pertinent Physical Exam-General - PHYSICAL EXAM-ADULT Initial Vital Signs Reviewed: Yes - CONSTITUTIONAL General Appearance: appears well, alert, no apparent distress - EYES Eyes: PERRL/EOMI, pink conjunctivae - HEAD, EARS, NOSE, MOUTH & THROAT HENMT: normocephalic/atraumatic, moist mucous membranes - NECK Neck: non-tender, full range of motion - RESPIRATORY Respiratory: chest non-tender, lungs clear, normal breath sounds - CARDIOVASCULAR Cardiovascular: normal peripheral pulses, regular rate, rhythm - GASTROINTESTINAL (ABDOMEN) Abdominal Exam: normal bowel sounds, non tender, soft - MUSCULOSKELETAL Back Exam: normal inspection, no CVA tenderness Extremity: normal range of motion, non-tender, normal gait - SKIN Integumentary: normal color, normal turgor - NEUROLOGIC Neurologic: grossly normal - PSYCHIATRIC Psych/Mental Status: normal mood/affect, normal thought content, normal thought process, oriented x 3 Progress - PLAN OF CARE/RESULTS Progress/Plan/Lab Results: Vital Signs - 8 hr 04/20/17 15:48 Temperature 98.4 F Pulse Rate 64 Respiratory Rate 16 Blood Pressure 142/54 O2 Sat by Pulse Oximetry 96 Orders Category Date Time Status CBC WITH ELECTRONIC DIFF [HEME] Stat Lab 04/20/17 16:11 Uncollected CMP [COMPREHENSIVE METABOLIC PANEL] [CHEM] Stat Lab 04/20/17 16:11 Uncollected PTH W CA AND PHOS [CHEM] Stat Lab 04/20/17 16:12 Uncollected UA NIMS W/REFLEX CULT [URINALYSIS] Stat Lab 04/20/17 16:04 Uncollected Result Diagrams: 04/20/17 16:35 - REASSESSMENT Reassessment #1 Time Reassessed: 17:05 Status: unchanged (dehydration, renal insufficiency, failed outpatient treatment for UTI, anemia) Departure - Departure Date of Disposition Decision: 04/20/17 Time of Disposition Decision: 17:07 DIAGNOSIS: Hypercalcemia, Renal insufficiency syndrome, Dehydration, Hyperparathyroidism, UTI symptoms Disposition: ADMITTED INPATIENT 09 Certified Medical Emergency: Emergent Condition: Stable Referrals and Follow-Ups: Abel Elmore MD [Primary Care Provider] - - Critical Care Note This patient required my direct & personal management of CC.: No This chart was documented by the indicated scribe, (Ilda Morrow Scribe) and accurately reflects the services I performed and decisions made by me, Gilbert Henley MD, as attested by the provider's signature.
[2017-04-20 16:53] LABS: BILIRUBIN URINE NEGATIVE (NEGATIVE); BLOOD URINE SMALL (NEGATIVE); COLOR YELLOW; GLUCOSE URINE NEGATIVE (NEGATIVE); LEUKOCYTES URINE LARGE (NEGATIVE); NITRITE URINE NEGATIVE (NEGATIVE); PROTEIN URINE 50 mg/dL (NEGATIVE); SP GRAVITY URINE 1.008; TURBIDITY URINE HAZY (CLEAR); UROBILINOGEN URINE NORMAL (NORMAL)
[2017-04-20 16:55] LABS: UR EPITHELIAL CELLS <10 /HPF (<10); URINE BACTERIA NEGATIVE /HPF; URINE CULTURE NEEDED? YES; URINE WBC TNTC /HPF (<10)
[2017-04-20 17:03] LABS: BASO% 0.6 % (0.0-0.8); EOS# 0.14 X1000 (0.0-0.7); EOS% 1.6 % (0.0-10.0); HEMOGLOBIN 8.9 g/dL (12.0-16.0); LYMPH# 0.81 X1000 (1.2-3.4); LYMPH% 9.4 % (20.5-51.1); MCH 27.6 PG (27-31); MCHC 30.7 g/dL (33-37); MCV 89.8 FL (81-99); MONO# 0.51 X1000 (0.11-0.59); MONO% 5.9 % (1.7-9.3); MPV 11.2 FL (7.4-10.4); NEUT% 82.5 % (42.2-75.2); PLT 374 X1000 (130-400); RBC 3.23 XMIL (4.2-5.4)
[2017-04-20 17:17] LABS: ALBUMIN 3.9 g/dL (3.5-5.0); CALCIUM 11.2 mg/dL (8.8-10.2); TOTAL BILIRUBIN 0.35 mg/dL (0.20-1.00); TOTAL PROTEIN 7.6 g/dL (6.3-8.3)
--- NOTE | 2017-04-20 17:42 | ED EKG INTERP ---
This chart was entered by Ilda Morrow Scribe, acting as scribe for Gilbert Henley MD. EKG Interpretation - EKG Time of EKG reading by physician:: 17:17 EKG Read and Signed by:: Gilbert Henley EKG Interpretation (*Must complete 3 of following elements*): Abnormal Rate: 60 (nonspecific t wave abnormality ) Rhythm: NSR This chart was documented by the indicated scribe, (Ilda Morrow Scribe) and accurately reflects the services I performed and decisions made by me, Gilbert Henley MD, as attested by the provider's signature.
[2017-04-20] MEDS ORDERED: ROCEPHIN 1 GM/NS 1 GM/50 ML IVPB IV ONE (18:01)
[2017-04-20] MEDS ORDERED: NS 1,000 ML IV SCH (18:27)
[2017-04-20] MEDS ORDERED: TYLENOL PO PRN (18:32)
[2017-04-20] MEDS: ROCEPHIN 1 GM/NS 1 GM/50 ML IVPB IV SCH (18:52)
--- NOTE | 2017-04-20 19:48 | HISTORY AND PHYSICAL ---
CHIEF COMPLAINT: Altered mental status. HISTORY OF PRESENT ILLNESS: A 76-year-old female with a past medical history of diverticulosis, prior diverticular bleed, hypertension, GERD, type 2 diabetes and atrial fibrillation. She presented to the emergency with a chief complaint of altered mental status. As per the daughter, this patient has been having UTI that started last week. She presented with the same symptoms to her primary doctor and he started this patient with antibiotics for 5 days which she ended last Wednesday. She basically recovered during the weekend and then on Wednesday she started having again some kind of mental status changes, she was not confused, but her answers were slow and she was not herself. So she went again to her primary care doctor who prescribed again medication, antibiotics, nitrofurantoin. She does not remember the name of the 1st antibiotic that she took before the nitrofurantoin. Today she presented to the emergency department, not only because she has the same symptoms, but because she was sent by her primary doctor secondary to hypercalcemia. In the emergency department they found out that this patient's calcium is elevated at 11.2, also the PTH is 123. Elevated BUN and creatinine which has been elevated seen last month. We have a previous study from 03/23/2017. Hemoglobin is 8.9, and it looks like this is around to her baseline. Seems the PTH and calcium are elevated. I will admit the patient for further workup, I will ask for urine calcium level in 24 hours, I will get some images of the parathyroid hormone with nuclear medicine, I will ask for phosphorus, TSH and vitamin D. Also I will get a renal ultrasound and a chest x-ray. In the emergency department, also they found out that this patient's urine has large leukocytes, but negative nitrates, but since this patient has been having multiple UTIs and she is still on treatment, I will put this patient on ceftriaxone. PHYSICAL EXAMINATION: VITAL SIGNS: Temperature 97.8 degrees, pulse 69, respiratory rate 20, blood pressure 152/43, oxygen saturation 96% on room air. HEENT: Head normocephalic. No trauma. PERRLA. NECK: Supple. No JVD. No masses. Central trachea. CHEST: Clear to auscultation. No wheezing. No rales. ABDOMEN: Soft, nontender, nondistended. No hepatosplenomegaly. EXTREMITIES: No edema. No clubbing. No cyanosis. NEUROLOGICAL: The patient is alert. She is oriented x3, but her answers are slow, but she is answering all the questions properly. She moves all 4 extremities. LABORATORY: WBC 8.6, hemoglobin 8.9, hematocrit 29, platelet 374,000. Sodium 137, potassium 4, chloride 101, bicarbonate 26, BUN 34, creatinine 2.2, glucose 146, calcium 11.2, albumin 3.9, total protein 7.6, PTH 123. PAST MEDICAL HISTORY: Diverticulosis with multiple diverticular bleed, also diverticulitis, hypertension, GERD, diabetes type 2 and atrial fibrillation. PAST SURGICAL HISTORY: Tubal ligation. Bowel surgery. Sclerotherapy. Back surgery. SOCIAL HISTORY: She denies tobacco, drugs and occasionally she drinks alcohol. ALLERGIES: Meloxicam. HOME MEDICATIONS: Pravastatin 20 mg p.o. at bedtime. Omeprazole 40 mg p.o. daily. Cetirizine 10 mg p.o. daily. Aspirin 81 mg p.o. daily. Propafenone 150 mg p.o. t.i.d. Losartan 100 mg p.o. t.i.d. Alprazolam 0.25 mg p.o. at bedtime. ASSESSMENT AND PLAN: 1. Altered mental status, this could be secondary to recurrent urinary tract infection and/or hypercalcemia, I will place this patient on antibiotics and I will work up this hypercalcemia. Her parathyroid hormone is high. This is likely secondary to primary hyperparathyroidism. 2. Hypercalcemia. Likely related with primary hyperparathyroidism. I will get a parathyroid nuclear study, also I will get a vitamin D, urine calcium and thyroid levels. I will hydrate this patient as well. 3. Acute kidney injury. This patient's kidney function last month was 1.6, but in November was completely normal. I am not quite sure how long she has been with this kidney problem. I will get an ultrasound of the kidneys. Likely this is related also to hypercalcemia. 4. Diverticulosis. Aware. 5. History of diverticular bleed and diverticulitis, since this patient has been having multiple gastrointestinal bleeds, I will stay away from anticoagulation at this moment. I will continue with her aspirin though. 6. Hypertension. I will hold her VADIM inhibitor and I will monitor the blood pressure. Since I am using normal saline, probably the blood pressure is going to go up. So I will start this patient on amlodipine low dose. 7. Gastroesophageal reflux disease. Continue with proton pump inhibitor. 8. Type 2 diabetes. I will put this patient on pattern blood sugar and sliding scale insulin. 9. Deep vein thrombosis prophylaxis. I will use SCDs and CONSTANTINO hose. Further treatment pending hospital course. cc: Buck Montoya MD
[2017-04-20] MEDS: HUMULIN R SUBQ SCH (22:55)
[2017-04-20] MEDS: NORVASC PO SCH (22:56)
[2017-04-20] MEDS: PRAVACHOL PO SCH (22:56)
--- NOTE | 2017-04-21 06:10 | Diag Imaging Result Doc PS360 ---
EXAM: CHEST-PORTABLE HISTORY: SOB TECHNIQUE: Portable AP COMPARISON: 11/22/2016 FINDINGS: The lungs are well expanded. The heart is enlarged. Mild central vascular prominence. No consolidation. No pleural effusions identified. IMPRESSION: Stable chest. Electronically signed by Cm Blanco 04/21/2017 6:08 AM
[2017-04-21 06:52] LABS: MANUAL DIFF NEEDED? NO
[2017-04-21] MEDS: HUMULIN R SUBQ SCH ×4 (07:04→23:01)
[2017-04-21 07:05] LABS: INR 1.04; PROTIME 10.9 Seconds (9.2-11.7); PTT 24.3 Seconds (22.0-36.0)
[2017-04-21 07:11] LABS: ALBUMIN 3.5 g/dL (3.5-5.0); BASO% 0.6 % (0.0-0.8); CALCIUM 10.4 mg/dL (8.8-10.2); EOS# 0.22 X1000 (0.0-0.7); EOS% 3.1 % (0.0-10.0); HEMATOCRIT 27.1 % (37.0-47.0); HEMOGLOBIN 8.3 g/dL (12.0-16.0); LYMPH# 0.77 X1000 (1.2-3.4); MCH 27.9 PG (27-31); MCHC 30.6 g/dL (33-37); MCV 90.9 FL (81-99); MONO# 0.39 X1000 (0.11-0.59); MONO% 5.6 % (1.7-9.3); MPV 11.3 FL (7.4-10.4); NEUT% 79.7 % (42.2-75.2); PLT 338 X1000 (130-400); POTASSIUM 4.1 mmol/L (3.5-5.1); RBC 2.98 XMIL (4.2-5.4); TOTAL BILIRUBIN 0.26 mg/dL (0.20-1.00); TOTAL PROTEIN 6.3 g/dL (6.3-8.3)
[2017-04-21 07:19] LABS: HEMOGLOBIN A1C 5.5 % (4.8-6.0)
[2017-04-21] MEDS: PRILOSEC PO SCH (14:43)
[2017-04-21] MEDS: NORVASC PO SCH ×2 (14:43→20:21)
[2017-04-21] MEDS: 1/2 NS 1,000 ML IV SCH (14:43)
[2017-04-21] MEDS: ASPIRIN EC PO SCH (14:43)
--- NOTE | 2017-04-21 15:12 | PROGRESS NOTE ---
DATE: 04/21/2017 SUBJECTIVE: This patient is stable. As per the daughter she has been a little bit confused but compared with yesterday she is about the same. She is answering all my questions properly but slow. She is in physical therapy and she is walking without any problems. OBJECTIVE: Vital Signs: Temperature 98.1 degrees, pulse 61, respiratory rate 18, blood pressure 153/82, oxygen saturation 96 on room air. HEENT: Head normocephalic. No trauma. PERRLA. Neck: Supple. No JVD. No masses. Central trachea. Chest: Clear to auscultation. No wheezing. No rales. Abdomen: Soft, protuberant, nontender, nondistended. No hepatosplenomegaly. Extremities: No edema. No clubbing. No cyanosis. Neurological: The patient is alert and oriented x3 but her answers are slow. She is answering all my questions properly. She moves all 4 extremities. LABORATORY: WBC 7, hemoglobin 8.3, hematocrit 27.1, platelets 333,000. Sodium 146, potassium 4.1, chloride 109, bicarbonate 24, BUN 31, creatinine. 2.3, glucose 134, calcium 10.4, albumin 3.5. ASSESSMENT AND PLAN: 1. Altered mental status. This could be secondary to recurrent urinary tract infection and/or hypercalcemia. This patient is on antibiotics and today she had a parathyroid nuclear medicine study. Her parathyroid hormone is high and probably this is likely secondary to primary hyperparathyroidism. 2. Hypercalcemia. Likely related to primary hyperparathyroidism. We had the parathyroid nuclear study today. We will continue with IV fluids. 3. Mild hypernatremia. Continue with the same management. 4. Acute kidney injury. Continue with IV fluids. 5. Diverticulosis. Aware. 6. History of diverticular bleed and diverticulitis. Aware. 7. Hypertension, stable. Continue with the same management. She is on amlodipine. I stopped the VADIM inhibitor because of the kidney injury. 8. Gastroesophageal reflux disease. Continue with PPIs. 9. Type 2 diabetes. Continue with the pattern of blood sugar and sliding scale insulin. 10. Deep vein thrombosis prophylaxis. Continue with SCDs and CONSTANTINO hose for now. cc: Buck Montoya MD
[2017-04-21] MEDS: ROCEPHIN 1 GM/NS 1 GM/50 ML IVPB IV SCH (18:34)
[2017-04-21] MEDS: PRAVACHOL PO SCH (20:21)
[2017-04-22] MEDS: 1/2 NS 1,000 ML IV SCH ×2 (05:35→14:53)
[2017-04-22 06:39] LABS: MANUAL DIFF NEEDED? NO
[2017-04-22 06:52] LABS: EOS# 0.23 X1000 (0.0-0.7); EOS% 4.4 % (0.0-10.0); HEMATOCRIT 28.5 % (37.0-47.0); HEMOGLOBIN 8.7 g/dL (12.0-16.0); LYMPH# 0.69 X1000 (1.2-3.4); LYMPH% 13.2 % (20.5-51.1); MCH 27.7 PG (27-31); MCHC 30.5 g/dL (33-37); MCV 90.8 FL (81-99); MONO# 0.45 X1000 (0.11-0.59); MONO% 8.6 % (1.7-9.3); MPV 11.1 FL (7.4-10.4); NEUT% 72.8 % (42.2-75.2); PLT 336 X1000 (130-400); RBC 3.14 XMIL (4.2-5.4)
[2017-04-22 07:00] LABS: CALCIUM 11.2 mg/dL (8.8-10.2)
--- NOTE | 2017-04-22 07:18 | Diag Imaging Result Doc PS360 ---
EXAM: US RENAL 2 (RETROPER) COMPLETE HISTORY: CKD TECHNIQUE: COMPARISON: 05/11/2016 FINDINGS: The right kidney measures 13.1 x 6.1 x 6.9 cm. Normal cortical thickness. Borderline mild increased renal echogenicity. Mildly dilated renal pelvis and calyces. There is a subcentimeter cyst superiorly. No solid mass. The left kidney measures 13.1 x 6.6 x 7.3 cm. There is mild to moderate distention to the renal pelvis and calyces. Normal cortical thickness. Borderline increased renal echogenicity. There is a small renal cyst. No solid mass. The urinary bladder is only mildly distended. IMPRESSION: Development of bilateral mild to moderate hydronephrosis. There is also borderline increased renal echotexture which can be seen with medical renal disease. Electronically signed by Cm Blanco 04/22/2017 7:16 AM
--- NOTE | 2017-04-22 07:19 | Diag Imaging Result Doc PS360 ---
EXAM: PARATHYROID W/SPECT HISTORY: high pth TECHNIQUE: 21.3 mCi sestamibi COMPARISON: 10/01/2010 FINDINGS: 20 minute and two hour postinjection imaging obtained. SPECT images taken. There is normal uptake in the parotid and submandibular glands. There is normal uptake within the thyroid. No other area of increased activity within the neck or upper chest. No focal area of asymmetry. IMPRESSION: No parathyroid identified. Electronically signed by Cm Blanco 04/22/2017 7:16 AM
[2017-04-22] MEDS: HUMULIN R SUBQ SCH ×4 (08:35→20:50)
[2017-04-22] MEDS ORDERED: LAMICTAL PO SCH (09:00)
[2017-04-22 09:11] LABS: HOURS 24 Hrs
[2017-04-22 09:28] LABS: UR CALCIUM < 0.6 mg/dL
[2017-04-22 09:32] LABS: MAGNESIUM 2.3 mg/dL (1.5-2.7)
[2017-04-22] MEDS: MIRALAX PO SCH ×2 (10:18→20:51)
[2017-04-22] MEDS: ASPIRIN EC PO SCH (10:19)
[2017-04-22] MEDS: NORVASC PO SCH ×2 (10:19→20:51)
[2017-04-22] MEDS: PRILOSEC PO SCH (10:19)
--- NOTE | 2017-04-22 10:22 | Diag Imaging Result Doc PS360 ---
SKELETAL SURVEY (ADULT) - 04/22/2017 INDICATION: R/O multiple myeloma TECHNIQUE: COMPARISON: None FINDINGS: 20 images of the axial and appendicular skeleton were obtained. There is advanced degeneration throughout the spine diffusely. There are fusion rods in the lower lumbar spine. There is mild osteoarthritis of both knees. In the left distal femur, there is a benign-appearing irregular sclerotic lesion. 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 No suspicious bony lesions. IMPRESSION: No suspicious bony lesions. Nonspecific findings as described above. Electronically signed by Kain Nichols 04/22/2017 10:20 AM
--- NOTE | 2017-04-22 15:15 | PROGRESS NOTE ---
DATE: 04/22/2017 SUBJECTIVE: This patient is stable, she is answering all my questions properly. She looks a little bit better compared with yesterday. Her answer is faster than yesterday. No family members at the bedside, but I called the daughter and we talked about her mom's situation today. OBJECTIVE: Vital Signs: Temperature 98.1 degrees, pulse 66, respiratory rate 18, blood pressure 166/54, oxygen saturation 98 on room air. HEENT: Head normocephalic. No trauma. PERRLA. Neck: Supple. No JVD. No masses. Central trachea. Chest: Clear to auscultation. No wheezing. No rales. Abdomen: Soft, nontender, nondistended. No hepatosplenomegaly. Neurological: The patient is alert and oriented x3. No focal neurological deficits. Her answers are slow, but she is answering all my questions properly, compared with yesterday, she looks a little bit better. LABORATORY: WBC 5.2, hemoglobin 8.7, hematocrit 28.5, platelets 336,000. Sodium 146, potassium 4, chloride 110, bicarbonate 25, BUN 29, creatinine 2.2, glucose 133, calcium 11.2, magnesium 2.3, LDH 136. ASSESSMENT AND PLAN: 1. Altered mental status. This could be secondary to urinary tract infection and/or hypercalcemia. This patient has a long history of high calcium, parathyroid hormone is high. I did a parathyroid nuclear medicine study that did not show any abnormality. I will rule out multiple myeloma. 2. Hyperglycemia, likely related to primary hyperparathyroidism. I will try to get an appointment as an outpatient with Endocrinology. A parathyroid nuclear study done yesterday did not show any abnormality. I will rule out multiple myeloma. I will ask for a serum protein electrophoresis in blood and urine. 3. Mild hypernatremia. Continue with the same management. I encouraged this patient to drink more water. 4. Acute kidney injury. Continue with IV fluids. Nephrology Department has been consulted. 5. Mild to moderate hydronephrosis. I have consulted Urology to evaluate this patient. 6. Hypertension. I will add hydralazine to her medications because the blood pressure has been high. 7. Diverticulosis. Aware. 8. History of diverticular bleed and diverticulitis. Aware. 9. Gastroesophageal reflux disease. Continue with proton pump inhibitor. 10. Type 2 diabetes. Continue with pattern of blood sugar and sliding scale insulin for now. 11. Deep vein thrombosis prophylaxis. Continue with SCDs and CONSTANTINO hose. This patient has a history of diverticular bleed. I will try to keep this patient just with SCDs and CONSTANTINO hose. cc: Buck Montoya MD
[2017-04-22 15:48] LABS: UR CREATININE 55.1 mg/dL (11-20)
--- NOTE | 2017-04-22 15:49 | Diag Imaging Result Doc PS360 ---
EXAM: ABDOMEN/PELVIS W/O CONTRAST HISTORY: decreased renal function, hydronephrosis TECHNIQUE: CT abdomen and pelvis without contrast. Dose reduction protocol. COMPARISON: 04/22/2013 FINDINGS: The gallbladder is contracted. No calcified stones. There is a 3 cm cyst in the medial liver. Otherwise normal noncontrasted liver, spleen, pancreas and right adrenal gland. No change in the 2 cm left adrenal nodule. No renal stones. There is bilateral hydronephrosis which is developed since the prior exam. This is prominent bilaterally hydronephrosis although this is more pronounced on the right. Although the urinary bladder is not distended, there appears to be thickening along the posterior and right lateral wall. No aortic aneurysm. Moderate atherosclerosis. No bowel obstruction. There are many diverticula scattered throughout the colon. Normal appendix. No abscess. The uterus is small. There has been prior surgery to the lower lumbar spine. There are also degenerative changes and mild scoliosis. IMPRESSION: 1.Development of prominent bilateral hydronephrosis with apparent thickening to the wall of urinary bladder. Further workup recommended. 2.Stable left adrenal nodule 3.Diverticulosis Electronically signed by Cm Blanco 04/22/2017 3:47 PM
[2017-04-22 16:16] LABS: UR CREATININE TOTAL 1129.6 mg/24 (600-1600)
--- NOTE | 2017-04-22 16:58 | CONSULTATION ---
DATE OF CONSULTATION: 04/22/2017 REASON FOR CONSULTATION: Acute kidney injury. HISTORY OF PRESENT ILLNESS: Ms. Faulkner Is a 76-year-old black female with obesity, diabetes, hypertension, history of atrial fibrillation. She had a recent UTI and was treated by Dr. Elmore with antibiotics. Despite this, she had confusion, somnolence and slowness to respond though she was appropriate apparently. She was therefore brought to the emergency room for evaluation. Her evaluation found her to be afebrile with normal blood pressure, normal heart rate but her laboratory data disclosed abnormal white blood cell count. Moderate anemia and renal failure. Her baseline creatinine is normal at 0.8 as recently as November and in late February her creatinine was 1.6. She does have trouble with urge incontinence. This is a chronic problem. Ultrasound demonstrated bilateral hydronephrosis. CT of the abdomen confirmed this but not did not disclose the discrete etiology of her hydronephrosis. There was thickening of the bladder wall. In addition she was diagnosed with hypercalcemia. Her PTH was elevated at 123, she had a negative scan. PAST MEDICAL HISTORY: As above. MEDICATIONS/ALLERGIES: Reviewed. SOCIAL HISTORY: She is attended by her daughter. No alcohol or tobacco. She does occasionally drink. FAMILY HISTORY: Noncontributory. PHYSICAL EXAMINATION: General: No acute distress. Skin: Warm and dry. HEENT: Conjunctivae are pink. Pupils are equal. Neck veins are not distended. Oropharynx is clear. Dentition normal. Tongue normal. Heart: Regular with a gallop. Lungs: Have equal breath sounds. No crackles or wheezes. Abdomen: Soft, nontender. Normal bowel sounds. No organomegaly, masses or bruits. Extremities: Have no edema, clubbing, or cyanosis. Neurologic: Exam is nonfocal except that she is slow to answer and defers to her daughter. IMPRESSION/PLAN: 1. Acute kidney injury. Presumably secondary to bilateral ureteral obstruction. I have spoken with Dr. Mcfarland who will see her this evening and plan to perform cystoscopy with retrogrades tomorrow. 2. Hypercalcemia. Stable. PTH is high. This pattern is most consistent with primary hyperparathyroidism though her parathyroid scan was negative. We will broaden the evaluation to include paraproteinemia, etc. 3. See orders. 4. Further recommendations to follow. cc: Jordan Maldonado MD
[2017-04-22] MEDS ORDERED: APRESOLINE PO SCH (17:00)
[2017-04-22] MEDS: ROCEPHIN 1 GM/NS 1 GM/50 ML IVPB IV SCH (19:10)
[2017-04-22] MEDS: PRAVACHOL PO SCH (20:51)
--- NOTE | 2017-04-22 20:56 | CONSULTATION ---
DATE OF CONSULTATION: 04/22/2017 HISTORY OF PRESENT ILLNESS: This 76-year-old female was admitted with mental status changes, urinary tract infection, hypercalcemia and renal insufficiency. The patient's creatinine was 0.8 in November 2016 and over the last several months has increased and was recently 2.2. The patient states she feels like she is doing well. She has been followed in Urology [facility] for several years. She was last seen in November 2016. She has a history of stress incontinence and urge incontinence. She also has problems with recurrent urinary infections, but did have no anatomic problems. A renal ultrasound and CT scan revealed bilateral hydronephrosis. This has increased since previous exams. PAST MEDICAL HISTORY: Hypertension. History of diverticulosis with diverticulitis. Diabetes. History of atrial fibrillation. CURRENT MEDICATIONS: Documented on the chart. PAST SURGICAL HISTORY: Bowel surgery. Lower back surgery. Tubal ligation. Teeth extraction. SOCIAL HISTORY: No tobacco or alcohol use. ALLERGIES: She is allergic to Mobic. She states she is feeling better. She appears somewhat confused. She denies any problems with strokes or seizures, recent pulmonary or bowel problems. PHYSICAL EXAMINATION: General: An obese, age apparent, normally developed, black female, who is cooperative. HEENT: Normal for age. Lungs: Clear. Cardiovascular: Regular rate and rhythm. Abdomen: Obese soft, nontender. No hepatosplenomegaly or masses. Normal bowel sounds. Genitourinary: Deferred until surgery. Extremities: No clubbing, cyanosis, or edema. Neurologic: No focal deficits. LABORATORY EVALUATION/IMAGING: He has a white count of 5.23, a hemoglobin 8.7, hematocrit 28.5 and platelets are 336,000. Serum electrolytes have a sodium of 146, potassium of 4, chloride 110, bicarb 25, BUN 29, creatinine 2.2. Serum calcium level is 11.2. Renal ultrasound and CT scan are as noted in the HPI. IMPRESSION: 1. Bilateral hydroureteronephrosis. Etiology not clear. Possibly due to pelvic prolapse. 2. Stress incontinence. 3. History of urgency and urge incontinence. 4. Hypercalcemia. RECOMMENDATIONS: Cystoscopic exam with bilateral retrograde ureteral pyelograms and placement of bilateral double-J stents if able. The planned procedure, benefits versus risks, possible complications, including, but not limited to, bleeding, infection, not being able to place the stents, need for further surgery was discussed with the patient and daughter. They seem to understand and desire to proceed. cc: Travon Mcfarland MD
[2017-04-23] MEDS: 1/2 NS 1,000 ML IV SCH ×2 (03:23→13:40)
[2017-04-23] MEDS: HUMULIN R SUBQ SCH ×4 (06:51→21:15)
[2017-04-23 06:56] LABS: MANUAL DIFF NEEDED? NO
[2017-04-23 07:10] LABS: BASO% 1.1 % (0.0-0.8); EOS# 0.14 X1000 (0.0-0.7); EOS% 2.5 % (0.0-10.0); HEMOGLOBIN 8.3 g/dL (12.0-16.0); LYMPH# 0.77 X1000 (1.2-3.4); LYMPH% 13.8 % (20.5-51.1); MCH 27.9 PG (27-31); MCHC 30.7 g/dL (33-37); MCV 90.6 FL (81-99); MONO# 0.39 X1000 (0.11-0.59); MPV 11.2 FL (7.4-10.4); NEUT% 75.6 % (42.2-75.2); PLT 329 X1000 (130-400); RBC 2.98 XMIL (4.2-5.4)
[2017-04-23 07:27] LABS: CALCIUM 10.6 mg/dL (8.8-10.2)
[2017-04-23] MEDS: NORVASC PO SCH ×2 (08:20→21:15)
[2017-04-23] MEDS: APRESOLINE PO SCH ×3 (08:24→21:14)
[2017-04-23] MEDS: MIRALAX PO SCH ×2 (08:25→21:17)
[2017-04-23] MEDS: PRILOSEC PO SCH (08:25)
--- NOTE | 2017-04-23 10:05 | PROGRESS NOTE ---
DATE: 04/23/2017 SUBJECTIVE: No new complaints today. She is anticipating surgery this afternoon at 2 o'clock. No shortness of breath, nausea or vomiting. OBJECTIVE: Vital Signs: Blood pressure 186/59, heart rate 74, respiration 18, afebrile. Intake 1.7 L. Output 2.2 L. General: On physical exam, no acute distress. Skin: Warm and dry. Eyes: Conjunctivae are pink. Neck: Neck veins are not distended. Heart: Regular without gallops. Lungs: Have equal breath sounds. No crackles. Abdomen: Soft, nontender. Bowel sounds present. Extremities: Have no edema, clubbing, or cyanosis. LABORATORY DATA: Sodium 146, potassium 4.0, chloride 110, bicarbonate 25, BUN 27 and creatinine 1.9. IMPRESSION: 1. Acute kidney injury: She is to have cystoscopy with retrograde and stent placement today, and we will follow her kidney function thereafter. 2. Electrolytes: Hypercalcemia is modestly improved today. Evaluation is in process. We will follow her results after her procedure. 3. Anemia, unchanged. cc: Jordan Maldonado MD
--- NOTE | 2017-04-23 13:59 | PROGRESS NOTE ---
DATE: 04/23/2017 SUBJECTIVE: This patient is alert and oriented x3. She is answering all my questions. She looks better compared with yesterday. No family members at the bedside. Today hopefully she will get a cystoscopic exam and bilateral retrograde ureteral pyelogram and placement of bilateral double-J stent if able. OBJECTIVE: Vital Signs: Temperature 97.8 degrees, pulse 74, respiratory rate 18, blood pressure 186/59, oxygen saturation 98 on room air. HEENT: Head normocephalic. No trauma. PERRLA. Neck: Supple. No JVD. No masses. Central trachea. Chest: Clear to auscultation. No wheezing. No rales. Abdomen: Soft, nontender, nondistended. No hepatosplenomegaly. Extremities: No edema. No clubbing. No cyanosis. Neurological: The patient is alert and oriented x3. She moves all 4 extremities. LABORATORY: WBC 5.5, hemoglobin 8.3, hematocrit 27, platelets 329,000. Sodium 146, potassium 4, chloride 110, bicarbonate 25, BUN 27 creatinine 1.9, glucose 139, calcium 10.6. ASSESSMENT AND PLAN: 1. Altered mental status, this could be secondary to urinary tract infection and/or hypercalcemia, it looks that this patient is getting much better. Her answers are more faster. She does not have any neurological problems at this moment. Hematology/oncology has been consulted to rule out multiple myeloma. Apparently she has been followed by them as an outpatient for chronic anemia. 2. Hyperglycemia likely secondary to primary hyperparathyroidism, we found an appointment with Dr. López on 05/07/2017 at 10 a.m. so hopefully after discharge she can follow up this with this doctor. 3. Hypernatremia stable. Continue with the same management. 4. Acute kidney injury. Continue with IV fluids. Nephrology Department is on board, today the kidney function looks better. 5. Mild to moderate bilateral hydronephrosis. Urology Department will go today to the OR to perform a cystoscopic exam and bilateral retrograde ureteral pyelograms and placement of bilateral double-J stents if able. 6. Diverticulosis aware. 7. Hypertension. I increased the dose of hydralazine. 8. History of diverticular bleed and diverticulitis aware. 9. Gastroesophageal reflux disease. Continue with PPIs. 10. Type 2 diabetes. Continue with pattern of blood sugar and sliding scale insulin for now. 11. Deep vein thrombosis prophylaxis. Continue with SCDs and CONSTANTINO castillo. cc: Buck Montoya MD
[2017-04-23] MEDS ORDERED: NEOSPORIN G.U. IRRIGANT ONE (14:47)
[2017-04-23] MEDS ORDERED: DIPRIVAN 1% ONE (15:07)
[2017-04-23] MEDS ORDERED: XYLOCAINE-MPF 2% ONE (15:08)
[2017-04-23] MEDS ORDERED: AK-FLUOR ONE (15:29)
[2017-04-23] MEDS ORDERED: FENTANYL ONE ×2 (15:41→16:03)
[2017-04-23] MEDS ORDERED: DECADRON ONE (15:44)
[2017-04-23] MEDS ORDERED: ZOFRAN ONE (15:44)
[2017-04-23] MEDS ORDERED: B & O 16A SUPP ONE (15:45)
[2017-04-23] MEDS ORDERED: NARCAN ONE (17:30)
--- NOTE | 2017-04-23 18:27 | OPERATIVE NOTE ---
PROCEDURE DATE: 04/23/2017 SURGEON: Travon Mcfarland MD. PREOPERATIVE DIAGNOSIS: Bilateral hydroureteronephrosis with renal insufficiency and thickened bladder wall. 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 PROCEDURE PERFORMED: 1. Cystoscopic exam. 2. Cold cup biopsies. 3. Transurethral resection of bladder tumor (greater than 5 square cm). 4. Bilateral retrograde ureteral pyelograms. 5. Place bilateral double-J stents. ANESTHESIA: General via laryngeal mask. FINDINGS: Cystoscopic exam: Urethra-greater than 28-Greek without stricture. Bladder-large bladder tumor covering the entire trigone starting at the right lower posterolateral wall going to the posterior trigone and across to the left lower posterolateral wall. The ureteral orifices were not visualized. There were no other bladder tumors. The posterior and lateral tabor and dome were clear. There were no trabeculations or diverticula noted. After the bladder tumor was resected and her having had the fluorescein dye IV, each ureteral orifice was found and to be in their normal anatomic position. This only occurred after the tumor was resected. Left retrograde ureteral pyelogram revealed tortuous ureters with hydronephrosis. No filling defects. Right retrograde ureteral pyelogram: Torturous ureter, hydronephrosis, no filling defect. exam revealed a thickened bladder wall on the anterior vaginal wall but the wall was not fixed. No adnexal masses. INDICATIONS FOR PROCEDURE: This 76-year-old female has a history of slowly failing kidneys. Her creatinine went from normal in November 2016 at 0.8 to 2.2. She denied any flank pains. DESCRIPTION OF PROCEDURE: After informed consent was obtained from the patient and daughter and her receiving IV antibiotics, she was taken to the main OR cystoscopy room and placed in the supine position. General anesthesia via laryngeal mask was achieved. She was then placed in the low lithotomy position and prepped and draped in the usual sterile fashion for cystoscopic exam. A 21-Greek cystoscope was passed through the patient's urethra and bladder findings noted above. The cold cup biopsy forceps were placed and a cold cup biopsy was taken from the right trigone, mid trigone, left trigone and a whitish area on the left lower posterolateral wall. These were sent to Pathology in separate containers. The cystoscope was removed. The 28-Greek continuous flow resectoscope sheath was placed. The thin Gyrus loop was placed. The tumor was resected starting at the right trigone and removing the entire trigone across the bladder to the left lower posterolateral wall. Hemostasis was achieved with electrocautery. The chips were removed from the bladder through the resectoscope with irrigation and directly grasping and removing them. After the tumor was resected she was given fluorescein dye and the ureteral orifices were found. A 5-Greek open ended ureteral catheter was passed into the bladder. A 0.035 ZIPwire was passed through the catheter and into the left ureter. The open-ended catheter was advanced up the left ureter. Contrast was injected and it was very tortuous. The wire was able to be pushed all the way to the kidney. After the wire was pushed into the kidney, a large amount of cloudy orange urine returned. A 6-Greek, 26 cm double-J stent was passed over the wire and up into the kidney. The right side was accomplished similarly with similar results. The stent removal strings were removed from each double-J stent. Because she had copious output from each side, an 18-Greek Penaloza catheter was placed. exam performed. She tolerated the procedure well. ESTIMATED BLOOD LOSS: 20 mL. DISPOSITION: She was taken to recovery room in good condition. cc: Travon Mcfarland MD
[2017-04-23] MEDS ORDERED: BLISTEX MEDICATED BERRY LIP BALM TOP PRN (18:48)
[2017-04-23] MEDS ORDERED: DITROPAN PO PRN (20:17)
[2017-04-23] MEDS ORDERED: B & O 16A SUPP PR PRN (20:18)
[2017-04-23] MEDS: ROCEPHIN 1 GM/NS 1 GM/50 ML IVPB IV SCH (21:03)
[2017-04-23] MEDS: PRAVACHOL PO SCH (21:15)
[2017-04-23] MEDS: ASPIRIN EC PO SCH (21:15)
[2017-04-24] MEDS: 1/2 NS 1,000 ML IV SCH (04:21)
[2017-04-24] MEDS: HUMULIN R SUBQ SCH ×4 (06:11→21:48)
[2017-04-24 06:43] LABS: BASO% 0.2 % (0.0-0.8); HEMOGLOBIN 8.1 g/dL (12.0-16.0); LYMPH% 7.1 % (20.5-51.1); MANUAL DIFF NEEDED? NO; MCH 27.6 PG (27-31); MCV 92.2 FL (81-99); MONO# 0.46 X1000 (0.11-0.59); MONO% 5.4 % (1.7-9.3); MPV 11.1 FL (7.4-10.4); NEUT% 87.3 % (42.2-75.2); PLT 324 X1000 (130-400); RBC 2.93 XMIL (4.2-5.4)
[2017-04-24 06:55] LABS: IRON SATURATION 14 %; TIBC 184 ug/dL; TOTAL IRON 26 ug/dL (49-151); UNBOUND IRON 158 ug/dL (112-346)
[2017-04-24 06:57] LABS: CALCIUM 10.8 mg/dL (8.8-10.2); POTASSIUM 4.2 mmol/L (3.5-5.1)
[2017-04-24 07:23] LABS: FERRITIN 329 ng/mL (13-150)
[2017-04-24] MEDS: ASPIRIN EC PO SCH (09:30)
[2017-04-24] MEDS: APRESOLINE PO SCH ×3 (09:30→20:18)
[2017-04-24] MEDS: PRILOSEC PO SCH (09:30)
[2017-04-24] MEDS: NORVASC PO SCH ×2 (09:30→20:18)
[2017-04-24] MEDS: MIRALAX PO SCH ×2 (09:30→20:17)
[2017-04-24] MEDS: D5W 1,000 ML IV SCH ×2 (09:39→20:13)
--- NOTE | 2017-04-24 12:19 | PROGRESS NOTE ---
DATE: 04/24/2017 SUBJECTIVE: This patient looks much better today. She is much more talkative, she is not confused. She is answering all my questions properly. Her daughter is at the bedside and we discussed about her condition. Urology Department basically signed off and Dr. Mcfarland will follow this patient up as an outpatient next Wednesday. Also this patient already has an appointment with Dr. López on 05/07/2017 and 10 a.m. All this was explained in detail to the daughter and patient. OBJECTIVE: Vital Signs: Temperature 99.1 degrees, pulse 79, respiratory rate 18, blood pressure 148/58, oxygen saturation 100% on 2 L of nasal cannula. HEENT: Head normocephalic. No trauma. PERRLA. Neck: Supple. No JVD. No masses. Central trachea. Chest: Clear to auscultation. No wheezing. No rales. Abdomen: Soft, nontender, nondistended. No hepatosplenomegaly. Genitourinary: This patient has a Penaloza catheter that is going to be removed. I can see some hematuria. Extremities: No edema. No clubbing. No cyanosis. Neurological: The patient is completely alert and oriented x3. She is more talkative, she moves all 4 extremities. She is on physical therapy and she has been walking around. LABORATORY: WBC 8.5, hemoglobin 8.1, hematocrit 27, platelets 324,000. Sodium 150, potassium 4.2, chloride 114, bicarbonate 24, BUN 22, creatinine 1.7, glucose 152, calcium 10.8. ASSESSMENT AND PLAN: 1. Altered mental status. This condition is much better. I do believe that this is her baseline. 2. Hypercalcemia likely secondary to primary hyperparathyroidism. We found an appointment with Dr. López on 05/07/2017 at 10 a.m. Hopefully after discharge she can follow up with this doctor. 3. Hypernatremia. I have switched the IV fluids to D5 W and I talked to the patient about these, she needs to drink more water. 4. Acute kidney injury. Continue with IV fluids. This is getting better. 5. Moderate bilateral hydronephrosis. Urology Department did a cystoscopy exam and they found a large bladder mass, apparently this was removed. They will follow this patient as an outpatient. 6. Large bladder mass, Dr. Mcfarland from Urology department did a cystoscopy yesterday. Mass was removed and sent to pathology. Also apparently, he put in some stents. He will follow this patient up next Wednesday. 7. Hypertension. Stable will monitor. 8. History of diverticular bleed and diverticulitis. Aware. 9. Gastroesophageal reflux disease. Continue with PPIs. 10. Type 2 diabetes. Continue with patterned blood sugar and sliding scale insulin for now. 11. Deep vein thrombosis prophylaxis. Continue with SCDs and CONSTANTINO phillye. cc: Buck Montoya MD
[2017-04-24] MEDS: ZOFRAN IV PRN (16:14)
[2017-04-24] MEDS: ROCEPHIN 1 GM/NS 1 GM/50 ML IVPB IV SCH (20:17)
[2017-04-24] MEDS: PRAVACHOL PO SCH (20:23)
[2017-04-25] MEDS: D5W 1,000 ML IV SCH ×3 (06:15→17:42)
[2017-04-25] MEDS: HUMULIN R SUBQ SCH ×4 (06:16→21:55)
[2017-04-25 07:04] LABS: MANUAL DIFF NEEDED? NO
[2017-04-25 07:07] LABS: BASO% 0.4 % (0.0-0.8); EOS# 0.13 X1000 (0.0-0.7); EOS% 1.8 % (0.0-10.0); HEMATOCRIT 28.8 % (37.0-47.0); LYMPH# 1.03 X1000 (1.2-3.4); MCH 28.5 PG (27-31); MCHC 31.3 g/dL (33-37); MCV 91.1 FL (81-99); MONO% 6.8 % (1.7-9.3); MPV 11.6 FL (7.4-10.4); PLT 311 X1000 (130-400); RBC 3.16 XMIL (4.2-5.4)
[2017-04-25 07:30] LABS: CALCIUM 10.4 mg/dL (8.8-10.2)
[2017-04-25] MEDS: PRILOSEC PO SCH (09:21)
[2017-04-25] MEDS: APRESOLINE PO SCH ×3 (09:21→21:52)
[2017-04-25] MEDS: NORVASC PO SCH ×2 (09:21→21:52)
[2017-04-25] MEDS: MIRALAX PO SCH ×2 (09:21→21:52)
[2017-04-25] MEDS: ASPIRIN EC PO SCH (09:21)
--- NOTE | 2017-04-25 12:09 | PROGRESS NOTE ---
DATE: 04/25/2017 SUBJECTIVE: This patient looks better today. She is more talkative. She is not confused. She is answering all my question properly. Tomorrow she will have a complete bone scan by nuclear medicine and then I will discharge this patient home with follow up with Dr. Mcfarland next Wednesday, Dr. López on May 07, 2017, and Dr. Coelho hopefully next week as well after the results of the bone scan. OBJECTIVE: Vital Signs: Temperature 98.3 degrees, pulse 81, respiratory rate 18, blood pressure 156/58, oxygen saturation 97% on room air. HEENT: Head normocephalic. No trauma. PERRLA. Neck: Supple. No JVD. No masses. Central trachea. Chest: Clear to auscultation. No wheezing. No rales. Abdomen: Soft, nontender, nondistended. No hepatosplenomegaly. Cardiovascular: RRR. No murmurs. Extremities: No edema. No clubbing. No cyanosis. Neurological: The patient is alert and oriented x3. No focal neurological deficits. LABORATORY: WBC 7.3, hemoglobin 9, hematocrit 28.8, platelets 311,000. Sodium 142, potassium 4, chloride 105, bicarbonate 23, BUN 19, creatinine 1.7, glucose 171, calcium 10.4. ASSESSMENT AND PLAN: 1. Altered mental status. This condition is much better. I do believe this is her baseline. We will continue to monitor. 2. Hyperglycemia, likely secondary to primary hyperparathyroidism. Parathyroid nuclear medicine study was negative. I found an appointment with Dr. López on 05/07/2017 at 10 a.m. Hopefully after discharge she can follow up with this doctor. 3. Hypernatremia. Continue with the IV fluids. Stable. 4. Acute kidney injury. Continue with IV fluids. This is getting better. 5. Moderate bilateral hydronephrosis. Urology department did a cystoscopy exam and they found a large bladder mass. Apparently this was removed. They will follow this patient as an outpatient. 6. Large bladder mass. As per Dr. Mcfarland. Follow up with him next Wednesday. 7. Hypertension, stable. Will monitor. 8. History of diverticular bleed and diverticulitis. Aware. 9. Gastroesophageal reflux disease. Continue with PPIs. 10. Type 2 diabetes. Continue with pattern of blood sugar and sliding scale insulin for now. 11. Deep vein thrombosis prophylaxis. Continue with SCDs and CONSTANTINO castillo. cc: Buck Montoya MD
[2017-04-25] MEDS ORDERED: DULCOLAX PR PRN (15:44)
[2017-04-25] MEDS: ZOFRAN IV PRN (18:50)
[2017-04-25] MEDS: ROCEPHIN 1 GM/NS 1 GM/50 ML IVPB IV SCH (21:51)
[2017-04-25] MEDS: PRAVACHOL PO SCH (21:52)
[2017-04-26 05:16] VITALS: BP 155/51
[2017-04-26] MEDS: HUMULIN R SUBQ SCH ×2 (06:23→11:32)
--- NOTE | 2017-04-26 08:10 | Diag Imaging Result Doc PS360 ---
EXAM: RETROGRADES 2 OR 3 FILMS HISTORY: BLADDER MASS, RENAL FAILURE TECHNIQUE: 79 films submitted from a procedure performed by Dr. Mcfarland COMPARISON: None. FINDINGS: Early film shows placement of a wire within the left ureter. A catheter was placed over this. Contrast was placed into the ureter. Ureter is dilated calyces are blunted. A ureteral stent was then placed. Later films show placement of a wire and stent within the right ureter. Ureters mildly dilated. Wire was placed into the renal pelvis and a ureteral stent was placed over this. The wire was removed. IMPRESSION: Mildly dilated ureters with bilateral ureteral stents placed. Electronically signed by Cm Blanco 04/26/2017 8:07 AM
[2017-04-26] MEDS: ASPIRIN EC PO SCH (08:50)
[2017-04-26] MEDS: APRESOLINE PO SCH ×2 (08:50→15:54)
[2017-04-26] MEDS: NORVASC PO SCH (08:50)
[2017-04-26] MEDS: PRILOSEC PO SCH (08:50)
[2017-04-26] MEDS: MIRALAX PO SCH (08:51)
--- NOTE | 2017-04-26 08:58 | PROGRESS NOTE ---
DATE: 04/26/2017 SUBJECTIVE: Patient is sitting up in bed. She is trying to eat some breakfast. She states that they were unable to obtain blood for labs this morning. OBJECTIVE: Vital Signs: Temperature 98.6 degrees, pulse 78, respiratory rate 18, blood pressure 155/51. Intake 2.8 L. Output 2.1 L. Physical Examination: General: Elderly female, sitting up in bed. Awake and alert. No acute distress. HEENT: Normocephalic, atraumatic. Oral mucosa is moist. Conjunctivae pink. MANNY. Neck: Supple. Trachea midline. There is no JVD noted. Cardiovascular: Reveals a regular rate and rhythm without murmur or gallop. Pulmonary: She has equal excursion. She is clear bilaterally. She has no increased work of breathing. Abdomen: Soft with positive bowel sounds. : She is voiding. Extremities: No clubbing, cyanosis, or edema. Is moving all extremities. Integumentary: Skin is warm and dry. Lab Data: I have no new labs this morning. Her labs yesterday indicated a WBC of 7.3. Sodium 142, potassium 4, creatinine 1.7, and a calcium of 10.4. ASSESSMENT AND PLAN: 1. Acute kidney injury. Renal function yesterday had stabilized after a procedure with a double J-stent. Continue to follow labs. No indication for intervention at this time. 2. Electrolytes, acid-base balance. These are acceptable. Her calcium was down to 10.4 yesterday. Continue to follow. Again, we are trying to get labs from this morning. 3. Anemia, stable. Seen, data reviewed, discussed with Jackelyn Carrington on 04/26/17. I agree with the above assessment and plan of care. rg Dictated by MINISTERIO Mejia for Jordan Maldonado MD cc: Jordan Maldonado MD [facility]
[2017-04-26 09:04] LABS: MANUAL DIFF NEEDED? NO
[2017-04-26 09:11] LABS: BASO% 0.6 % (0.0-0.8); EOS# 0.07 X1000 (0.0-0.7); EOS% 1.3 % (0.0-10.0); HEMATOCRIT 30.3 % (37.0-47.0); HEMOGLOBIN 9.2 g/dL (12.0-16.0); LYMPH# 0.82 X1000 (1.2-3.4); LYMPH% 15.8 % (20.5-51.1); MCH 27.5 PG (27-31); MCHC 30.4 g/dL (33-37); MCV 90.7 FL (81-99); MONO# 0.29 X1000 (0.11-0.59); MONO% 5.6 % (1.7-9.3); MPV 11.3 FL (7.4-10.4); NEUT% 76.7 % (42.2-75.2); PLT 322 X1000 (130-400); RBC 3.34 XMIL (4.2-5.4)
[2017-04-26 09:26] LABS: CALCIUM 10.9 mg/dL (8.8-10.2); POTASSIUM 3.8 mmol/L (3.5-5.1)
[2017-04-26] MEDS: D5W 1,000 ML IV SCH (11:30)
--- NOTE | 2017-04-26 13:37 | Diag Imaging Result Doc PS360 ---
EXAM: BONE SCAN, TOTAL BODY HISTORY: r/o mets TECHNIQUE: 27 mCi MDP administered COMPARISON: None. FINDINGS: Patient has mild scoliosis. Mild increased activity in each knee medially consistent with arthritic changes. No focal abnormal area chest, spine, pelvis. Mild increased activity in the left shoulder compared the right likely due to arthritic changes at the acromioclavicular joint. IMPRESSION: No bony metastases identified. Electronically signed by Cm Blanco 04/26/2017 1:34 PM
[2017-04-26] MEDS: ZOFRAN IV PRN (13:55)
--- NOTE | 2017-04-26 18:02 | CONSULTATION ---
DATE OF CONSULTATION: 04/23/2017 ADMITTING PHYSICIAN: Dr. Colon. REQUESTING PHYSICIAN: Dr. Colon. We appreciate this consult. CHIEF COMPLAINT: Nausea and vomiting. HISTORY OF PRESENT ILLNESS: Ms. Faulkner is a very pleasant 76-year-old female, well known to us with a history of anemia of chronic disease currently being treated with Aranesp in the clinic setting. The patient also has a history of diverticulosis, diverticular bleed, hypertension, gastroesophageal reflux disease, diabetes mellitus type 2 and atrial fibrillation. She presented to [facility] Emergency Department with a complaint from her family members of altered mental status. The patient had been diagnosed with a urinary tract infection 1 week prior. The patient also was found to be hypercalcemic on admission with a calcium 11.2. Parathyroid hormone was 123. The patient was admitted for workup and we are consulted as the patient is known to us. PAST MEDICAL HISTORY: 1. Diverticulosis with multiple diverticular bleeds. 2. Diverticulitis. 3. Hypertension. 4. Gastroesophageal reflux disease. 5. Diabetes mellitus type 2. 6. Atrial fibrillation. 7. Anemia of chronic disease. PAST SURGICAL HISTORY: 1. Tubal ligation. 2. Bowel surgery. 3. Sclerotherapy. 4. Back surgery. SOCIAL HISTORY: The patient does not use tobacco or illicit drugs. She drinks alcohol rarely. FAMILY HISTORY: Negative for any hematologic or oncologic problems. MEDICATIONS ON ADMISSION: 1. Pravastatin. 2. Omeprazole. 3. Cetirizine. 4. Aspirin 81 mg. 5. Propafenone. 6. Losartan. 7. Alprazolam. ALLERGIES: Are to meloxicam. REVIEW OF SYSTEMS: A 14 point review of systems was obtained and is negative except as mentioned in HPI. PHYSICAL EXAM: Ms. Faulkner is a very pleasant 76-year-old female lying supine in bed awake, alert and oriented x2 in no immediate distress.Vital Signs: Temperature 97.8 degrees, blood pressure 186/59, heart rate 74, respirations 18, O2 saturation is 98% on room air. HEENT: Normocephalic, atraumatic. Mucous membranes are pale and moist. Sclerae is anicteric. Extraocular movements intact. Neck: Supple. Lungs: Clear to auscultation bilaterally. Chest expansion is equal bilaterally. CV: S1, S2 is heard without murmur, rub or gallop. Abdomen: Soft, nondistended, nontender. Bowel sounds are positive in all quadrants. No rebound or guarding noted. Extremities: Without clubbing, cyanosis, or edema. Dermatologic: No rashes, bruises or lesions. Neurologic: The patient is awake, alert, orient x2. She has no focal deficit at this time. LABORATORY DATA: Hemoglobin 8.3, hematocrit 27.0, white blood cell count 5.58, platelets 329,000, ANC 4.22. Sodium 146, potassium 4.0, chloride 110, CO2 is 25, BUN 27, creatinine 1.9, glucose 139, calcium is 10.6, PTH is 123, LDH is 136, TSH 1.55, CRP 17.25, beta 2 microglobulin is 5.6. Urine cultures are negative. IMAGING STUDIES: CT of the abdomen and pelvis reveals bilateral prominent hydronephrosis and bladder wall thickening with a stable left adrenal nodule. Skeletal survey is negative. Parathyroid scan is negative. ASSESSMENT AND PLAN: 1. Acute kidney insufficiency. Creatinine is currently stable at 1.9, currently on intravenous fluid hydration. 2. Anemia of chronic disease. Hemoglobin is 8.3. We will continue to follow and transfuse if hemoglobin drops below 8.0. 3. Altered mental status questionably related to #4 improved and resolved at this time. 4. Hypertension persists. Continue antihypertensive. Blood pressure is currently 186/59. 5. Hypercalcemia with an elevated PTH. Will obtain bone scan. We are waiting on SPEP at this time. SPEP has been negative in the past. The patient is due for Aranesp in April secondary to anemia with chronic kidney disease. 6. We will follow along with you and make further recommendations pending outcomes. The above reflects the history, exam, assessment, plan of Dr. Coelho. Dictated by MINISTERIO Hawley for Jovon Coelho MD cc: MINISTERIO Hawley MD
--- NOTE | 2017-04-27 06:39 | DISCHARGE SUMMARY ---
ADMISSION DATE: 04/20/2017 DISCHARGE DATE: 04/26/2017 CONSULTATIONS: 1. Dr. Jordan Maldonado with Nephrology. 2. Dr. Travon Mcfarland with Urology. PERTINENT PROCEDURES: 1. Parathyroid scan showed no parathyroid identified. 2. Abdomen and pelvis CT showed development of prominent bilateral hydrostenosis with apparent thickening of the wall of urinary bladder. Stable left adrenal nodule, diverticulosis. 3. Renal ultrasound showed development of bilateral mild to moderate hydronephrosis. 4. Cystoscopic exam, cold cup biopsy, transurethral resection of bladder tumor greater than 5 cm2. Bilateral retrograde urethral pyelogram and placement of bilateral double-J stents by Dr. Mcfarland. DISCHARGE DIAGNOSES: 1. Altered mental status felt secondary to urinary tract infection and hypercalcemia. Patient is back to baseline. 2. Hypercalcemia likely secondary to primary hyperthyroidism. The patient has an appointment with treating machine operator Dr. López on 05/07/2017. 3. Hypernatremia improved. 4. Acute kidney injury. Improvement after double-J stent. 5. Moderate bilateral hydronephrosis. The patient did undergo a cystoscopic exam with transurethral resection of bladder tumor, bilateral retrograde urethral pyelogram and placement of double-J stents by Dr. Travon Mcfarland. She will continue to follow up with Dr. Mcfarland. 6. Large bladder mass. She will continue to follow up with him on an outpatient basis. She is also going for a bone scan today and will follow up with Dr. Coelho as well. 7. Hypertension stable. 8. Diverticular bleed and diverticulitis history, aware, stable. 9. Gastroesophageal reflux disease. Continue Proton Pump Inhibitor. 10. Diabetes mellitus type 2. Continue home regimen. HOSPITAL COURSE: Ms. Faulkner is a 76-year-old female who carries a past medical history of diverticulosis, prior diverticular bleed, hypertension, GERD, type 2 diabetes, atrial fibrillation, who presented to the ED with a chief complaint of altered mental status. Per the daughter, the patient had been having a UTI that started a week prior. She presented with the same symptoms to her primary care physician, Dr. Elmore, and had been started on antibiotics for 5 days. She recovered during the weekend, and then on Wednesday she started having the same kind of mental status changes. No confusion, but she was slow to answer questions and was not herself. She went again to see her primary care physician, who again prescribed antibiotics, and she presented to the ED not only for the same symptoms, but because she was sent by her PCP secondary to hypercalcemia. Her calcium was elevated at 11.2, her PTH was 123. She also had an elevated BUN and creatinine. She had a parathyroid scan that showed no parathyroid identified, a renal ultrasound that showed bilateral [id number] hydronephrosis. Her urinalysis is negative for any nitrates, but show too numerous to count white blood cells. Given her history of UTI she was initiated on IV antibiotics. She remained on IV fluids for hydration. Urology and Nephrology was consulted and the patient did undergo a cystoscopic exam, cold cup biopsies, transurethral resection of bladder tumor greater than 5 cm2, bilateral retrograde urethral pyelograms in order to place a double-J stent by Dr. Mcfarland. The patient's mentation is back to baseline. Her renal function has stabilized after her procedure. Electrolytes and acid bases have remained acceptable. Her calcium on the day of discharge is 10.9. She does have a follow-up appointment with strip feeder, Dr. López in [place] on 05/07/2017 at 10 a.m. and she will follow up with Dr. Coelho's office next week for the results of her bone scan today, and Dr. Mcfarland next Wednesday for the results of her bladder mass. VITAL SIGNS AT TIME OF HER DISCHARGE: Temperature is 98.6 degrees, heart rate 78, respirations 18, blood pressure is 155/51. O2 is 98% on room air. DISCHARGE DIET: Regular. DISCHARGE MEDICATIONS: As per Dr. Colon. Please see MAR. FOLLOWUP: Ms. Faulkner is being discharged home with [facility]. She will follow up with her primary care physician, Dr. Elmore. In 7-10 days she will follow up with Derik López on 05/07/2017 at 10 a.m. She will follow up with Dr. Mcfarland next week as well as Dr. Coelho for results of her bone scan. The patient can return to the ED for any worsening of symptoms. DISCHARGE TIME: 35 minutes. Dictated by MINISTERIO Calloway for Buck Montoya MD cc: MD Abel Reyes MD
== END 2017-04-26 17:36 | disposition home health service (06) ==
LOC: ED 15:33 → 3N 17:28
PROVIDERS: ATTEND Internal Medicine